=== PATIENT | female | born 1945 | race Caucasian/White ===

== ENCOUNTER 2022-03-12 16:10 | Outpatient (REF) | payer MEDICARE, SELFPAY ==
--- NOTE | ~2022-03-12 | CT_ITS ---
EXAMINATION: CT HEAD WITHOUT CONTRAST CLINICAL INFORMATION: Tension type headaches. COMPARISON: None TECHNIQUE: Contiguous axial imaging was performed from the skull base to vertex without intravenous administration of contrast. This CT examination was performed using dose optimization techniques as appropriate, variously including the following: *Automated exposure control *Adjustment of mA and/or kV according to patient size (this includes techniques or standardized protocols for targeted exams where dose is matched to indication/reason for exam; i.e. extremities or head) *Use of iterative reconstruction technique DLP: 7:30 mGy-cm FINDINGS: There is no acute intra-axial, extra-axial bleed, collection, masses or midline shift. There is no acute infarction evolution. No edema. The lateral ventricles are symmetrical in size and configuration and mildly prominent. Bone windows reveal no calvarial abnormality. Bilateral paranasal sinuses and mastoid air cells are well-aerated. There is no calvarial abnormality. The soft tissues are normal. CT/CT head/brain wo IV con IMPRESSION: No acute intracranial process.
== END 2022-03-12 16:11 | disposition home or self-care (01) ==
LOC: HO.CT 16:10
PROVIDERS: Visit Provider Psychiatry & Neurology Neurology
DX: G44.209 Tension-type headache, unspecified, not intractable (principal)
CPT/HCPCS: 70450

== ENCOUNTER 2023-06-03 13:08 | Outpatient (REF) | payer MEDICARE, SELFPAY ==
[2023-06-03 13:31] LABS: MANUAL DIFF FLAG NO
[2023-06-03 14:25] LABS: Basophils Absolute Auto 0.1 X10*3/uL (0.0-0.2); Basophils Percent Auto 1.1 % (0-2); Eosinophils Absolute Auto 0.3 X10*3/uL (0.0-0.4); Eosinophils Percent Auto 4.3 % (0-4); Hematocrit 35.2 % (37.0-47.0); Hemoglobin 11.8 g/dl (12.0-16.0); Imm Gran Abs Auto 0.03 X10*3/uL (0.00-0.03); Imm Gran Pct Auto 0.4 % (0.0-0.4); Lymphocytes Absolute Auto 1.9 X10*3/uL (1.2-4.9); Lymphocytes Percent Auto 24.6 % (20-40); Mean Corpuscular HGB Conc 33.5 g/dl (31.0-35.0); Mean Corpuscular Hemoglobin 31.6 pg (27.0-33.0); Mean Corpuscular Volume 94.4 fL (80.0-98.0); Mean Platelet Volume 9.7 fL (9.4-12.3); Monocytes Absolute Auto 0.7 X10*3/uL (0.1-1.2); Monocytes Percent Auto 9.3 % (2-11); Neutrophils Absolute Auto 4.6 x10*3/uL (2.0-8.3); Neutrophils Percent Auto 60.3 % (45-73); Platelet Count 295 X10*3/uL (160-400); Red Blood Count 3.73 X10*6/uL (4.20-5.50); White Blood Count 7.6 X10*3/uL (4.8-10.8)
[2023-06-03 14:52] LABS: Erythrocyte Sedimentation Rate 31 MM/HR (0-20)
== END 2023-06-03 13:09 | disposition home or self-care (01) ==
LOC: HO.LAB 13:08
PROVIDERS: Visit Provider Psychiatry & Neurology Neurology
DX: G44.209 Tension-type headache, unspecified, not intractable (principal); G62.9 Polyneuropathy, unspecified; G47.33 Obstructive sleep apnea (adult) (pediatric)
CPT/HCPCS: 36415; 85025; 85652

== ENCOUNTER 2023-06-22 14:19 | Emergency (ER) | payer OTHER, SELFPAY ==
[2023-06-22 14:28] VITALS: BP 112/50; BP 118/47; PULSE 61; PULSE 62; RESP 16; TEMP 36.6; O2SAT 95; BMI 34.5
--- NOTE | 2023-06-22 14:44 | ED_ITS ---
HPI - General Adult General Chief complaint: General Medical Stated complaint: back/leg pain per ems Time Seen by Provider: 06/22/23 14:25 Source: patient and EMS Mode of arrival: EMS Limitations: no limitations History of Present Illness HPI narrative: patient presents with diffuse pain mostly to her legs from neuropathy but also has just diffuse pain, no able to care for herself not eating or drinking. She had falls in February nothing recently Onset (ago): week(s) Related Data Previous Rx's Medication Instructions Recorded diclofenac sodium 1 % topical gel 2 g topical BID #100 grams 05/22/20 (Voltaren) hydroxychloroquine 200 mg tablet 200 mg PO BID #180 tabs 10/19/20 Allergies Allergy/AdvReac Type Severity Reaction Status Date / Time amoxicillin Allergy Unknown Unknown Verified 06/22/23 21:40 ciprofloxacin [Cipro] Allergy Unknown Unknown Verified 06/22/23 21:40 Sulfa (Sulfonamide Allergy Unknown Unknown Verified 06/22/23 21:40 Antibiotics) No Known Allergies Allergy Unverified 01/05/20 14:47 [No Known Allergies*] Review of Systems 2 Review of Systems: Yes all other systems are reviewed and are negative Neurologic: Denies Sensory deficit (Neuro) [facility] Social History Social History Alcohol intake: former Smoked in Last 30 Days: Yes Use of substances other than those prescribed or required for medical reasons: No Advance Directives: No Advance Directives Information Provided: No Physical Exam ED Vital Signs: Vital Signs - 24 hr 06/22/23 14:28 06/22/23 15:23 06/22/23 21:31 Temperature 97.9 F 97.5 F 97.8 F Pulse Rate 61 62 62 Respiratory Rate 16 16 16 Blood Pressure 118/47 L 134/68 121/38 L Pulse Oximetry 95 93 95 Oxygen Delivery Method Room Air Room Air Room Air BMI result Body Mass Index 34.5 Const Other: anxious complaining of pain out of proportion to physical findings Nutritional Appearance: obese Orientation/consciousness: oriented to person and patient oriented x3 Limitations: no limitations HENMT Head: Yes normal to inspection Ears: external ears normal General nose exam: Normal external nose present Mouth: Normal oral and palatal mucosa present and oropharynx normal Throat: Yes posterior oropharynx normal Eyes General: appearance normal, both eyes and all related structures Neck Neck: Yes normal visual inspection Chest Chest palpation & inspection: normal inspection of the chest Resp Auscultation: clear to auscultation bilaterally Cardio Jugular venous distension: no JVD Rate: regular rate Rhythm: regular rhythm Heart sounds: S1 normal heart sound present and S2 normal heart sound present GI Inspection: Yes normal to inspection Palpation (GI): Soft to palpation, nontender and No hepatosplenomegaly present Auscultation: normal bowel sounds Other: rectal heme negative light brown stool Skin General skin exam: no rashes or lesions noted Neuro General: oriented to person and patient oriented x3 Cranial nerves: Yes CN's II-XII intact bilaterally Motor exam (neuro): 5/5 motor strength present throughout Sensory Exam: No Sensory deficit (Neuro) Extrem General: Yes normal to inspection Psych Appearance: grossly normal Course Reevaluation(s) Reevaluation #1: physician observation started now: awaiting to make sure patient does not have a UTI, she needs PT to see her and see if her strength improves or she will need placement Time: 21:45 Reevaluation #2: patient with borderline hyponatremia and anemia. She has not been eating well or taking care of herself, her rectal exam was negative for blood so no evidence of GI bleed Time: 21:47 Medications Administered Discontinued Medications Generic Name Dose Route Start Last Admin Trade Name Stevenq PRN Reason Stop Dose Admin Acetaminophen 975 mg 06/22/23 18:03 06/22/23 18:19 Acetaminophen 325 Mg Tablet PO 06/22/23 18:04 975 mg ONCE ONE Administration Medical Decision Making Differential Diagnosis Differential Diagnoses: The differential diagnosis associated with the presentation includes (dehydration, hyponatremia, UTI, anemia, chronic pain, weakness) Admission/Observation Consideration of admission/observation: Escalation of care including admission/observation considered (upon arrival patient was considered for admission) Consult Healthcare Provider Management of the patient was discussed with: Restaurant Cashier (PT and case management) Lab Data MDM Lab Attestation statement: I reviewed the patient's lab results. (anemia and hyponatremia were noted) 06/22/23 15:01 06/22/23 15:01 Labs: Lab Results 06/22/23 Range/Units 15:01 WBC 5.2 (4.8-10.8) X10*3/uL RBC 3.17 L (4.20-5.50) X10*6/uL Hgb 11.0 L (12.0-16.0) g/dl Hct 29.9 L (37.0-47.0) % MCV 94.3 (80.0-98.0) fL MCH 34.7 H (27.0-33.0) pg MCHC 36.8 H (31.0-35.0) g/dl RDW 15.2 (11.0-16.0) % Plt Count 188 D (160-400) X10*3/uL MPV 9.1 L (9.4-12.3) fL Immature Gran % (Auto) 0.8 H (0.0-0.4) % Neut % (Auto) 63.8 (45-73) % Lymph % (Auto) 14.2 L (20-40) % Blaine % (Auto) 19.4 H (2-11) % Eos % (Auto) 1.0 (0-4) % Baso % (Auto) 0.8 (0-2) % Lymph # (Auto) 0.7 L (1.2-4.9) X10*3/uL Blaine # (Auto) 1.0 (0.1-1.2) X10*3/uL Eos # (Auto) 0.1 (0.0-0.4) X10*3/uL Baso # (Auto) 0.0 (0.0-0.2) X10*3/uL Abs Immat Gran (auto) 0.04 H (0.00-0.03) X10*3/uL Absolute Neuts (auto) 3.3 (2.0-8.3) x10*3/uL Absolute Nucleated RBC 0.000 (0.0-0.012) X10*3/uL Nucleated RBC % (auto) 0.0 (0.0-0.2) /100WBC Sodium 130 L (135-145) mmol/L Potassium 3.9 (3.3-5.1) mmol/L Chloride 97 (96-108) mmol/L Carbon Dioxide 25 (22-29) mmol/L Anion Gap 12 (12-20) BUN 14 (9-16) mg/dL Creatinine 0.78 (0.5-1.4) mg/dL Estim Creat Clear Calc 59.3 Estimated GFR > 60 Random Glucose 91 (60-115) mg/dL Calcium 8.7 (8.4-10.2) mg/dL Independent Interpretation I performed an independent interpretation of an: EKG (sinus 60, no st or twave changes) Independent Historian Clinical information obtained from an independent historian. History obtained from or confirmed by: EMS Prescription Management I considered prescription management with: Antibiotic (no evidence of infection) Chronic Conditions Patient?s care impacted by: Other (chronic pain) Social Determinants Patient?s care significantly limited by Social Determinants of Health including: Low income Discharge Plan Discharge Clinical Impression: Weakness, Neuropathy Patient Disposition: Still a Patient Prescriptions: No Action diclofenac sodium [Voltaren] 1 % gel 2 g topical BID Qty: 100 2RF Rx Instructions: apply 2g twice daily as needed to affected area hydroxychloroquine 200 mg tablet 200 mg PO BID Qty: 180 1RF
--- NOTE | 2023-06-22 14:46 | ECG_ITS ---
Test Reason : WEAKNESS Blood Pressure : / mmHG Vent. Rate : 060 BPM Atrial Rate : 060 BPM P-R Int : 214 ms QRS Dur : 078 ms QT Int : 446 ms P-R-T Axes : 078 001 021 degrees QTc Int : 446 ms Sinus rhythm with 1st degree A-V block Otherwise normal ECG No previous ECGs available Referred By: Erwin Bustos Electronically Signed By:Andrew Poon
[2023-06-22 15:04] LABS: MANUAL DIFF FLAG NO
[2023-06-22 15:06] LABS: Basophils Percent Auto 0.8 % (0-2); Eosinophils Absolute Auto 0.1 X10*3/uL (0.0-0.4); Hematocrit 29.9 % (37.0-47.0); Imm Gran Abs Auto 0.04 X10*3/uL (0.00-0.03); Imm Gran Pct Auto 0.8 % (0.0-0.4); Lymphocytes Absolute Auto 0.7 X10*3/uL (1.2-4.9); Lymphocytes Percent Auto 14.2 % (20-40); Mean Corpuscular HGB Conc 36.8 g/dl (31.0-35.0); Mean Corpuscular Hemoglobin 34.7 pg (27.0-33.0); Mean Corpuscular Volume 94.3 fL (80.0-98.0); Mean Platelet Volume 9.1 fL (9.4-12.3); Monocytes Percent Auto 19.4 % (2-11); Neutrophils Absolute Auto 3.3 x10*3/uL (2.0-8.3); Neutrophils Percent Auto 63.8 % (45-73); Platelet Count 188 X10*3/uL (160-400); Red Blood Count 3.17 X10*6/uL (4.20-5.50); Red Cell Distribution Width 15.2 % (11.0-16.0); White Blood Count 5.2 X10*3/uL (4.8-10.8)
[2023-06-22 15:23] VITALS: BP 134/68; PULSE 62; RESP 16; TEMP 36.4; O2SAT 93
[2023-06-22 15:31] LABS: Anion Gap 12 (12-20); Blood Urea Nitrogen 14 mg/dL (9-16); Calcium 8.7 mg/dL (8.4-10.2); Carbon Dioxide 25 mmol/L (22-29); Chloride 97 mmol/L (96-108); Creatinine Clr Calc Pharmacy 59.3; Estimated Glomerular Filt Rate > 60; Glucose Random 91 mg/dL (60-115); Potassium 3.9 mmol/L (3.3-5.1); Sodium 130 mmol/L (135-145)
--- NOTE | 2023-06-22 16:47 | MHC.EDTECH ---
Patient bed pad changed and repositioned
--- NOTE | 2023-06-22 16:47 | MHC.CM.ED ---
CM met with patient at request of Dr. Bustos. Pt is A&Ox3, but is rambling in speech and does not seem to remember that she fell 3 times over the weekend and that she will have a PT assessment. Pt asked CM 3 times about why she needs PT. Pt is complaining of r knee and leg pain and a headache. RN notified of headache. Pt lives alone. Has [employer] through [facility] that comes 2 hours/day on . Pt was active with [facility], but states they are no help to her. Pt has a cane, but she uses it very little. Her PCP is Gilbert QUIROS at [facility], but patient states she wants a new doctor. Pt has a daughter, but she has no contact with her. Pt states she was homeless about 5-6 years ago, but is now living in a studio apartment in [place]. HCP on file is her nephew, Rosales Lynn ([phone]). Pt states she has little contact with him. Pt states she is willing to go to therapy if she needs to. PT pending. Local referrals placed. CM will follow for safe discharge plan.
[2023-06-22] MEDS: Acetaminophen 325 MG TABLET 975 MG PO (18:19)
[2023-06-22 21:31] VITALS: BP 121/38; PULSE 62; RESP 16; TEMP 36.6; O2SAT 95
[2023-06-23 00:56] LABS: Appearance Urine Clear; Color Urine Yellow; Glucose Urine UA Negative (Negative); Leukocyte Esterase Urine Small (1+) (Negative); Nitrite Urine Negative (Negative); PH 5.5 (5.0-9.0); UMIC TRIGGER UACC YES; Urine Blood Negative (Negative); Urine Ketones Trace mg/dL (Negative); Urine Protein Trace mg/dL (Neg-Trace)
[2023-06-23 01:04] LABS: Bacteria Urine None Seen (None Seen); Hyaline Casts Urine 0-2 /LPF (0-2); RBC Urine 0-2 /HPF (0-2); Squamous Epithelial Cell Urine 0-2 /HPF (0-2); UACC Culture Trigger YES; WBC Urine 0-5 /HPF (0-5)
[2023-06-23 01:31] VITALS: BP 145/59; PULSE 81; RESP 18; TEMP 37.6; O2SAT 96
--- NOTE | 2023-06-23 01:47 | MHC.EDTECH ---
This tech took over care of patient at 0100AM ,Hourly rounds and vitals completed. Patient was a minimal assist to commode,patient urinated a large amount,nuha-care giving. Belonoing list completed copy placed in chart. Call heart within reach
--- NOTE | 2023-06-23 03:46 | MHC.EDTECH ---
Hourly rounds completed,patient is resting comfortably at this time,call heart in reach.
--- NOTE | 2023-06-23 05:12 | MHC.EDTECH ---
Patient got up to commode without difficulty,urinated a moderate amount,nuha-care giving.
--- NOTE | 2023-06-23 06:15 | MHC.EDTECH ---
Hourly rounds completed,patient is sleeping at this time ,call heart in reach
--- NOTE | 2023-06-23 07:40 | PC.NURSE ---
Called pharmacy requesting med rec for patient.
[2023-06-23 07:50] VITALS: BP 132/70; PULSE 96; RESP 16; TEMP 37.2; O2SAT 97
--- NOTE | 2023-06-23 10:42 | PC.NURSE ---
Patient alert and oriented, skin PWD, respirations even and unlabored, lung sounds clear, slightly diminished in lower bases, patient reports 9/10 pain in bilateral feet and legs, call heart within reach, Angelica from case management at bedside at this time speaking with patient regarding [facility].
--- NOTE | 2023-06-23 10:42 | MHC.CM.ED ---
Addendum entered by Rupal Balbuena 06/23/23 14:06: Insurance auth has been obtained. Patient can leave at 430pm. Diana SPRINGER booked. Med [facility] with chart. Patient, Opal RN and Cindy QUIROS aware. Original Note: Patient remains in ER. Physical therapy eval completed. The following facilities are able to offer a bed: [facility], [facility], [facility], [facility], and [facility] are able to offer a bed. These options were discussed with patient. [facility] is 1st choice and has been asked to go for ins auth. Continue to monitor for d/c needs.
[2023-06-23 10:47] LABS: COVID-19 Test Negative (Negative); IDNOW Serial# 08D9AD1C
[2023-06-23] MEDS: Acetaminophen 325 MG TABLET 650 MG PO (11:10)
--- NOTE | 2023-06-23 12:48 | PHA.MEDREC ---
Pharmacy Consult ? Medication Reconciliation Pharmacy has completed the medication reconciliation. Patient confused, agreeable to medications from claim history. Did say she no longer takes amitriptyline because it made her sick, and also no longer takes Cymbalta or the lactulose solution.
[2023-06-23 15:09] VITALS: BP 108/51; PULSE 92; RESP 16; TEMP 36.4; O2SAT 97
[2023-06-23 16:00] VITALS: BP 110/52; PULSE 88; RESP 14; O2SAT 96
== END 2023-06-23 17:48 | disposition skilled nursing facility (03) ==
PROVIDERS: Physician Assistant Medical; Emergency Provider Emergency Medicine
DX: R53.1 Weakness (principal); G62.9 Polyneuropathy, unspecified; E87.1 Hypo-osmolality and hyponatremia; D64.9 Anemia, unspecified; Z11.52 Encounter for screening for COVID-19
CPT/HCPCS: 36415; 80048; 81001; 85025; 87086; 87635; 93005; 97162; 99284; 99285

== ENCOUNTER → 2023-06-22 14:46 | Outpatient (BNV) | payer OTHER, SELFPAY | PROVIDERS: Emergency Provider Emergency Medicine; Visit Provider Internal Medicine Cardiovascular Disease | DX: I44.0 Atrioventricular block, first degree (principal) | CPT/HCPCS: 93010 ==

== ENCOUNTER 2023-08-28 13:20 | Outpatient (REF) | payer OTHER, SELFPAY ==
--- NOTE | ~2023-08-28 | CT_ITS ---
EXAMINATION: CT HEAD WITHOUT CONTRAST CLINICAL INFORMATION: 77-year-old with tension headache and syncope. COMPARISON: None available. TECHNIQUE: Contiguous axial imaging was performed from the skull base to vertex without intravenous administration of contrast. This CT examination was performed using dose optimization techniques as appropriate, variously including the following: *Automated exposure control *Adjustment of mA and/or kV according to patient size (this includes techniques or standardized protocols for targeted exams where dose is matched to indication/reason for exam; i.e. extremities or head) *Use of iterative reconstruction technique DLP: 587 mGy-cm FINDINGS: BRAIN VOLUME: Mild generalized diffuse supratentorial parenchymal volume loss within the limitations of qualitative assessment. STRUCTURAL: No malformations. BRAIN AND MENINGES: Subtle small patchy zones of white matter hypodensity are seen in the subcortical white matter of both frontal lobes which are nonspecific but could reflect minimal chronic ischemic microangiopathy. Farmer-white matter interface is preserved. There is no acute territorial infarct. Ganglionic structures appear grossly intact. No intracranial hemorrhage, extra-axial fluid collection, space-occupying process or mass effect. Bilateral carotid siphon mural calcifications. VENTRICLES AND SUBARACHNOID SPACES: The ventricular system and subarachnoid spaces are within normal range; there is no hydrocephalus. ORBITAL STRUCTURES: Grossly unremarkable within the limitations of the study. OSSEOUS STRUCTURES, SINUSES/MASTOIDS, EXTRACRANIAL SOFT TISSUES: The calvarium appears intact. The visualized mastoids and middle ear cavities are unopacified. Probable retention cyst formation in the right maxillary sinus and possibly in the ethmoid complex on the right with some mucosal thickening in the ethmoid complex. CT/CT head/brain wo IV con IMPRESSION: 1. No acute intracranial process. No acute territorial infarct, intracranial hemorrhage, extra-axial fluid collection, space-occupying process, or mass effect. 2. Mild generalized diffuse supratentorial parenchymal volume loss and minimal chronic ischemic microangiopathy in the subcortical white matter of both frontal lobes.
== END 2023-08-28 13:21 | disposition home or self-care (01) ==
LOC: HO.CT 13:20
PROVIDERS: Visit Provider Psychiatry & Neurology Neurology
DX: R55 Syncope and collapse (principal); G44.209 Tension-type headache, unspecified, not intractable
CPT/HCPCS: 70450

== ENCOUNTER 2024-12-06 11:25 | Outpatient (AMB) | payer OTHER, SELFPAY ==
--- NOTE | 2024-12-06 11:59 | A.OFFVIS_ITS ---
Intake Visit Reasons: 4 month syncope amnesia Allergies amoxicillin Allergy (Unknown, Verified 06/22/23 21:40) Unknown ciprofloxacin (Cipro) Allergy (Unknown, Verified 06/22/23 21:40) Unknown Sulfa (Sulfonamide Antibiotics) Allergy (Unknown, Verified 06/22/23 21:40) Unknown No Known Allergies (No Known Allergies*) Allergy (Unverified 01/05/20 14:47) HPI Comments Details: No further syncope of amnesia. She has a possible Syncopal episode in Feb 2024? was admitted to [facility]. Has amnesia for 4-5 days. No medical records. Now getting lot of pressure in head. Scalp sensitivity. Using a nasal pillow for JENNIFER with CPAP at 15cm.. Feels pressure in base of skull and eye balls. Feels exhausted.? Getting pains under breast and chest pains that can last 2 hrs.?? She has multiple medical problems and multiple complaints who has been on a lot of medications including large doses of narcotics chronically for a diagnosis of fibromyalgia and had been seeing Dr. Shelby at [facility]. She says she gets a lot of headaches on a daily basis some days feels dizzy and out of it. Legs hurt at night and go numb and her sleep is disrupted. Frequent headaches and nape of neck swells. [facility] Medical History (Updated 12/06/24 @ 12:18 by Marshall Lombardi MD) Sensory neuropathy JENNIFER on CPAP Narcotic dependence Depression with anxiety Fibromyalgia Tension headache Social History Alcohol intake: former Review of Systems Const Details: ?General/Constitutional:? Change in appetitedenies.? Chillsdenies.? Fatigueadmits.? Feverdenies.? Weight gaindenies.? Weight lossdenies. ???Sleep:? Difficulty getting to sleepdenies.? Difficulty maintaining sleepdenies?.? Urge to move legsadmits.? Teeth grindingdenies.? Shouting or Kicking during sleep denies.? Abnormal behavior during sleepdenies.? Excessive sleepdenies.? Snoring admits.? Daytime sleepinessdenies. ???Respiratory:? Shortness of breathadmits.? Chest painadmits.? Coughadmits. ???Cardiovascular:? Chest pain at restdenies.? Chest pain with exertiondenies.? Claudicationdenies .? Dizzinessdenies.? Fluid accumulation in the legsdenies.? Irregular heartbeat denies.? Palpitationsadmits. ???Gastrointestinal:? Abdominal paindenies.? Constipationadmits.? Diarrheadenies.? Difficulty swallowingdenies.? Heartburndenies.? Nauseaadmits.? Rectal bleedingdenies. ???Genitourinary:? Frequent urinationadmits.? Urgencyadmits.? Incontinenceadmits.? Erectile Dysfunctiondenies. ???Musculoskeletal:? Neck paindenies.? Back painadmits.? Muscle achesadmits.? Painful jointsadmits.? Sciaticadenies.? Weaknessdenies. ???Neurologic:? Difficulty swallowingdenies.? Balance difficultyadmits.? Coordinationnormal.? Difficulty speakingdenies.? Dizzinessadmits.? Faintingdenies.? Gait abnormality denies.? Headacheadmits.? Loss of strengthdenies.? Loss of use of extremity denies.? Low back paindenies.? Memory lossadmits.? Seizuresdenies.? Ticsdenies.? Tingling/Numbnessadmits.? Transient loss of visiondenies.? Tremordenies. ???Psychiatric:? Anxietyadmits.? Auditory/visual hallucinationsdenies.? Delusionsdenies.? Depressed moodadmits.? Stressorsadmits.? Substance abusedenies.? Suicidal thoughtsdenies. Physical Exam Neuro Other: Abnormal neurological findings:??none.?Mental Status:??alert and oriented X 3,?Normal attention, orientation, memory and affect.?Cranial Nerves:??Pupils are equal, round and reactive to light. Fundoscopy shows normal disc bilaterally. External occular muscles are intact. Visual willard are full, no ptosis. Face is symmetrical, no facial weakness or droop. Facial sensations are normal. Tongue protrudes in midline. Palate elevates symmetrically. Shoulder shrugging is normal..?Motor Examination:??Normal muscle tone, bulk and strength,?No atrophy or fasciculations,?No drift of the extended upper extremities,?Deep tendon reflexes are 2+?,?Plantars are flexor?.?Straight Leg Raising:??90 degrees.?Sensory Exam:??Normal light touch, temperature, pinprick, vibration and joint-position sensations?,?Rhomberg sign is absent.?Coordination:??no ataxia,?no titubation,?[id number], [id number]-[id number] test and rapid alternating movements were normal.?Gait Exam:??Within normal limits.?Cerebellar Signs:??[id number]-[id number] and ikdu-be-njty is normal,?no dysdiadochokinesia?.?E xtrapyramidal System:??No tremor, rigidity with normal facial expressions,?No bradykinesia, no bradyphrenia. Normal arm swing and posture. No propulsion or retropulsion.?Speech:??Normal,?no dysphasia or dysarthria..? Mini Mental Status Exam: Level of Consciousness:??Alert.?Orientation:??Knows correct year, month, date, day and season,?Knows correct city, county and state. Knows correct location and floor.?Registration:??Able to register 3 objects.?Attention:??Serial 7's performed accurately.?Recall:??Able to recall 3 out of 3 objects.?Language:??Normal spontaneous speech, fluency, repetition,naming, comprehension, reading and writing.?Total Score:??30/30.? Results Reviewed Results Reviewed: 10/03/24 Waking EEG is within normal limits Assessment & Plan Assessment & Plan (1) Syncope: Code(s): R55 - Syncope and collapse Category: Medical (2) Tension headache: Code(s): G44.209 - Tension-type headache, unspecified, not intractable Category: Medical (3) Sensory neuropathy: Comment: 11/11/23 NCV/EMG ALL Early Carpal tunnel syndrome on the left in the upper extremities. 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 Normal EMG in the right L4-S1 innervated muscles. Code(s): G62.9 - Polyneuropathy, unspecified Category: Medical Plan [facility]btain records from [facility].Continue current meds . Use CPAP at least 4-6 hrs Coding Level of Care Code Est Pt Level 4 (54840) Diagnoses Syncope R55 Tension headache G44.209 Sensory neuropathy G62.9
--- OUTSIDE RECORDS SUMMARY | 2024-12-06 12:59 | XMS_ITS ---
Author Organization [facility] Support Name Relationship Address Phone Aniyah Mccartyjorie Personal Relationship [address] [facility] [address] [place], [place] [id number] Rosales [place] Emergency Contact [address] [place] [address] Unavailable Care Team Providers Care Mascara Molder Name Role Phone Wanda Lima Unavailable Unavailable Allergies and adverse reactions Code CodeSystem Substance Reaction Severity StartDate Concern Status 682284076 SNOMED CT Sulfa Antibiotics Unknown 06/23/2023 active 2551 RXNORM Ciprofloxacin Unknown 06/23/2023 active 723 RXNORM Amoxicillin Unknown 06/23/2023 active Care Team Name Role Address Phone Organization Dates Wanda Lima PCP [address] [place] [address], [place], [address], [place] States (Office): : [facility] 06/23/2023 - 06/30/2023 Immunizations Immunization Status Vaccine Details Vaccine Code CodeSystem Clarence e Notes Influenza, high dose seasonal cancelled Influenza, high-dose, split virus, trivalent, injectable, preservative free 135 CVX created date: 06/29/2023 consent date: 06/29/2023 Medications Section Medication Name Status Code CodeSystem Dose Route Frequency Admin Type Sig Text Start Date End Date Pantoprazole Sodium Oral Tablet Delayed Release 20 MG active 215129 RXNORM 1 tablet Oral one time a day Routine Give 1 tablet by mouth one time a day for gerd 2023 - clonazePAM Oral Tablet 1 MG active 649437 RXNORM 1 tablet Oral as needed PRN Give 1 tablet by mouth every 8 hours as needed for anxiet y 2023 - Albuterol Sulfate HFA Inhalation Aerosol Solution 108 (90 Base) MCG/ACT active 169623 RXNORM 2 puff Inhalat ion as needed PRN 2 puff inhale orally every 4 hours as needed for wheezi ng 2023 - Vitamin B Complex Oral Tablet active 1 tablet Oral one time a day Routine Give 1 tablet by mouth one time a day for supple ment 2023 - hydrOXYzine HCl Oral Tablet 10 MG active 357369 RXNORM 1 tablet Oral one time a day Routine Give 1 tablet by mouth one time a day for anxiet y 2023 - Baclofen Oral Tablet 10 MG active 967982 RXNORM 1 tablet Oral at bedtime Routine Give 1 tablet by mouth at bedtim e for lupus 2023 - Trelegy Ellipta Inhalation Aerosol Powder Breath Activated 100-62.5-25 MCG/ACT active 0751950 RXNORM 1 inhala tion Inhalat ion one time a day Routine 1 inhala tion inhale orally one time a day for copd 2023 - oxyCODONE HCl Oral Tablet 5 MG active 3506517 RXNORM 1 tablet Oral as needed PRN Give 1 tablet by mouth every 6 hours as needed for pain 2023 - busPIRone HCl Oral Tablet 5 MG active 932032 RXNORM 1 tablet Oral every morning and at bedtime Routine Give 1 tablet by mouth every mornin g and at bedtim e for anxiet y 2023 - Fleet Enema Enema 7-19 GM/118ML active 847782 RXNORM 1 dose Rectal as needed PRN Insert 1 dose rectal ly as needed for Consti pation (Step 3) as needed if no bowel moveme nt for 8 hours after bisaco dyl suppos itory. 2023 - Milk of Magnesia Suspension 400 MG/5ML active 091160 RXNORM 30 ml Oral as needed PRN Give 30 ml by mouth as needed for Consti pation (Step 1) As needed if no bowel moveme nt for three days. (Do not use for Hemodi alysis patien ts). 2023 - Acetaminophen Tablet 325 MG active 025517 RXNORM 2 tablet Oral as needed PRN Give 2 tablet by mouth every 6 hours as needed for Pain Pain Total dosage for acetam inophe n and medica tions that contai n acetam inophe n should not exceed 3 grams / 24 hours. AND Give 2 tablet by mouth every 6 hours as needed for Fever greate r than 100.0F Total dosage for acetam inophe n and medica tions that contai n acetam inophe n should not exceed 3 grams / 24 hours. 2023 - 846672 RXNORM 2 tablet Oral as needed PRN Give 2 tablet by mouth every 6 hours as needed for Pain Pain Total dosage for acetam inophe n and medica tions that contai n acetam inophe n should not exceed 3 grams / 24 hours. AND Give 2 tablet by mouth every 6 hours as needed for Fever greate r than 100.0F Total dosage for acetam inophe n and medica tions that contai n acetam inophe n should not exceed 3 grams / 24 hours. 2023 - Aspirin Oral Tablet Chewable 81 MG active 320754 RXNORM 1 tablet Oral one time a day Routine Give 1 tablet by mouth one time a day for CAD 2023 - Furosemide Oral Tablet 20 MG active 947947 RXNORM 1 tablet Oral as needed PRN Give 1 tablet by mouth every 24 hours as needed for edema 2023 - Bisacodyl Suppository 10 MG active 147476 RXNORM 1 suppos itory Rectal as needed PRN Insert 1 suppos itory rectal ly as needed for If no bowel moveme nt for 8 hours after Milk of Magnes ia 2023 - Atorvastatin Calcium Oral Tablet 20 MG active 723683 RXNORM 1 tablet Oral at bedtime Routine Give 1 tablet by mouth at bedtim e for HLD 2023 - Vitamin E Oral Capsule 268 MG (400 UNIT) active 561287 RXNORM 1 capsul e Oral one time a day Routine Give 1 capsul e by mouth one time a day for supple ment 2023 - Zofran Oral Tablet 4 MG active 366554 RXNORM 1 tablet Oral as needed PRN Give 1 tablet by mouth every 8 hours as needed for n/v 2023 - Nitroglycerin Sublingual Tablet Sublingual 0.3 MG active 949371 RXNORM 1 tablet Subling ual as needed PRN Give 1 tablet sublin gually every 24 hours as needed for angina 1 tab sl x1 prn angina 2023 - Morphine Sulfate ER Oral Tablet Extended Release 15 MG active 695563 RXNORM 1 tablet Oral every morning and at bedtime Routine Give 1 tablet by mouth every mornin g and at bedtim e for pain 2023 - Mental Status Section Date Assessment Total Score Description 06/30/2023 BIMS 15 cognitively int act CAM 0 No delirium ind icated PHQ-9 05 mild depression 06/26/2023 BIMS 14 cognitively int act CAM 0 No delirium ind icated PHQ-9 01 minimal depress ion Problems Problem # Description Date of onset Resolved Date Code CodeSystem Concern Status 1 ANEMIA, UNSPECIFIED 06/23/[address] active 2 ANXIETY DISORDER, UNSPECIFIED 06/23/[address] active 3 CHRONIC OBSTRUCTIVE PULMONARY DISEASE, UNSPECIFIED 06/23/[address] active 4 DIFFICULTY IN WALKING, NOT ELSEWHERE CLASSIFIED 06/23/[address] active 5 HEREDITARY AND IDIOPATHIC NEUROPATHY, UNSPECIFIED 06/23/[address] active 6 HYPO-OSMOLALITY AND HYPONATREMIA 06/23/[address] active 7 PAIN, UNSPECIFIED 06/23/[address] active 8 UNSPECIFIED LACK OF COORDINATION 06/23/[address] active 9 UNSTEADINESS ON FEET 06/23/[address] active 10 WEAKNESS 06/23/[address] active Reason for Referral No Reasons for Referral Entered Social History Social History Observation Description Start Date End Date Code Code System Current Smoking Status Tobacco smoking consumption unknown 985217435 SNOMED CT Sex Assigned At Female 1945 98191-4 [facility] Gender Identity Vital Signs Code Code System Vitals Name Values and Units Timing Information 73340-4 LOINC Pain Level Value=0.0 06/30/2023 9279-1 LOINC Respiratory Rate Value=18.0 Units=/m in 06/26/2023 8462-4 LOINC Blood Pressure-Diastolic Value=60 Un its=mmHg 06/26/2023 8480-6 LOINC Blood Pressure-Systolic Iiqzy=593 Un its=mmHg 06/26/2023 8310-5 LOINC Body Temperature Value=97.8 Units= F 06/26/2023 8867-4 [facility] Heart rate Value=60.0 Units=/min 11/2023 70771-1 [facility] O2 % BldC Oximetry Value=93.0 Units= % 06/26/2023 33595-0 [facility] Weight Ipxma=194.0 Units=Lbs 09/2023 8302-2 [facility] Height Value=62.0 Units=Inches 06/23/2023
--- OUTSIDE RECORDS SUMMARY | 2024-12-06 12:59 | XMS_ITS | Clinical Summary ---
Author Organization [facility] Address [address] [place] [address] Care Team Providers Care Power Ballast Machine Operator Name Role Phone Gilbert Julien Primary Care Provider [phone] Allergies Active Allergy Reactions Criticality Noted Date Comments Amoxicillin-Pot Clavulanate Apnea High 06/08/19 21 Ciprofloxacin Hcl Anaphylaxis High 06/08/2020 Desipramine Anaphylaxis High 06/08/2020 Flu Vac 2011 (18-64yrs)(Pf) Unknown 06/08/19 21 Sulfamethoxazole-Trimethoprim Anaphylaxis High 06/08 Tetanus Immune Globulin Anaphylaxis High 06/08/2020 Medications albuterol (PROAIR HFA,VENTOLIN HFA) 90 mcg inhaler Inhale 1-2 puffs by mouth every 6 hours. Active ipratropium-alb uteroL (DUO-NEB) 0.5-2.5 mg/3 mL nebulizer solution Active nitroglycerin (NITROSTAT) 0.[address] 0.4 mg under the tongue every 5 minutes as needed. Active ondansetron (ZOFRAN) 4 mg tablet Take 4 mg by mouth every 8 hours as needed for nausea or vomiting. Active loratadine (CLARITIN) 10 mg tablet Take 10 mg by mouth daily. Active hyoscyamine (ANASPAZ,LEVSIN ) 0.125 mg tablet Take 0.125 mg by mouth every 4 hours as needed. Active furosemide (LASIX) 20 mg tablet Take 20 mg by mouth once a day. Active DULoxetine DR (CYMBALTA) 60 mg capsule Take 60 mg by mouth once a day. Active hydrOXYzine HCL (ATARAX) 10 mg tablet Take 10 mg by mouth once a day. Active naloxone HCl (NARCAN) 4 mg/actuation nasal spray Instill the contents of 1 unit intranasally for suspected opioid overdose. Repeat after 3 minutes if no or minimal response. 1 each 4 Active Trelegy Ellipta 100-62.5-25 mcg blister with device Inhale 1 puff by mouth once a day. 4 Active aspirin 81 mg EC tablet Take 1 tablet by mouth once a day. Active hydroxychloroqu ine (PLAQUENIL) 200 mg tabletIndicatio ns:Polyarthralg ia Take 2 tablets (400 mg total) by mouth once a day. 180 tablet 3 4 Active celecoxib (CeleBREX) 100 mg capsuleIndicati ons:Polyarthral briana Take 1 capsule (100 mg total) by mouth 2 times a day as needed for pain. Take with food 60 capsule 2 5 Active pregabalin (LYRICA) 75 mg capsuleIndicati ons:Fibromyalgi a Take 1 capsule (75 mg total) by mouth nightly. 30 capsule 2 5 Active baclofen (LIORESAL) 10 mg tablet Take 1 tablet (10 mg total) by mouth 2 times a day as needed for muscle spasms. 60 tablet 2 5 Active clonazePAM (KlonoPIN) 1 mg tablet Take 1 tablet (1 mg total) by mouth 3 times a day as needed for anxiety. 90 tablet 5 Active morphine ER (MS CONTIN) 15 mg tablet Take 1 tablet (15 mg total) by mouth 2 times a day. 60 tablet 5 12/08/19 25 Active Active Problems Problem Noted Date Diagnosed Date Age-related osteoporosis wit hout current pathological fracture 08/09/2024 Assessment & Plan (08/09/2024 11:37 AM EDT): On DXA from yesterday -we will come back to if not addressed by PCP in interim Long-term use of high-risk medication 01/27/2024 Assessment & Plan (08/09/2024 11:36 AM EDT): Hydroxychloroquine and systemic NSAID and morphine -follow up with ophtho Assessment & Plan (01/27/2024 12:02 PM EDT): Hydroxychloroquine and systemic NSAID and morphine -labs today -follow up with ophtho -urine tox --signed controlled substance agreement Fibromyalgia 06/15/2023 Assessment & Plan (08/09/2024 11:37 AM EDT): Here with join pain/bone pain. Overall sense is that there is a combination of issues including significant mental health diagnoses for which does not have a provider at this time, untreated JENNIFER, osteoarthritis, peripheral neuropathy and all as a result centralized pain and fibromyalgia. There is a reported history of lupus but I do not see evidence of inflammatory arthritis at this time. Positive SEFERINO with low pos RIGGER CHIEF. -continue hydroxychloroquine 200mg BID -continue duloxetine 60mg every other day -continue oxycontin in lieu of available morphine ER --I have reviewed the controlled substance dispensing history for Xiomy Mccarty in the [place] Prescription Monitoring Program before prescribing a controlled substance. -follow up neuro Assessment & Plan (01/27/2024 12:02 PM EDT): Here with join pain/bone pain. Overall sense is that there is a combination of issues including significant mental health diagnoses for which does not have a provider at this time, untreated JENNIFER, osteoarthritis, peripheral neuropathy and all as a result centralized pain and fibromyalgia. There is a reported history of lupus but I do not see evidence of inflammatory arthritis at this time. Positive SEFERINO with low pos RIGGER CHIEF. -continue hydroxychloroquine 200mg BID -continue duloxetine 60mg every other day -continue morphine ER -we can use ibuprofen in lieu of oxycodone as long as we monitor lab testing -follow up neuro Assessment & Plan (10/28/2023 10:25 AM EDT): Here with join pain/bone pain. Overall sense is that there is a combination of issues including significant mental health diagnoses for which does not have a provider at this time, untreated JENNIFER, osteoarthritis, peripheral neuropathy and all as a result centralized pain and fibromyalgia. There is a reported history of lupus but I do not see evidence of inflammatory arthritis at this time. Positive SEFERINO with low pos RIGGER CHIEF. -continue hydroxychloroquine 200mg BID -continue duloxetine as per neuro --await EMG/NCS --asked to call when she knows the date of this -morphine ER refilled --I have reviewed the controlled substance dispensing history for Xiomy Mccarty in the [facility] Prescription Monitoring Program before prescribing a controlled substance. Assessment & Plan (07/24/2023 11:52 AM EDT): Here with join pain/bone pain. Overall sense is that there is a combination of issues including significant mental health diagnoses for which does not have a provider at this time, untreated JENNIFER, osteoarthritis and all as a result centralized pain and fibromyalgia. There is a reported history of lupus but I do not see evidence of inflammatory arthritis at this time. Positive SEFERINO with low pos RIGGER CHIEF. -has been improvement in her symptoms from last visit -given reports that does think there was joint benefit in terms of hydroxychloroquine so we will restart at this point as next step Assessment & Plan (07/10/2023 10:59 AM EDT): Here with join pain/bone pain. Overall sense is that there is a combination of issues including significant mental health diagnoses for which does not have a provider at this time, untreated JENNIFER, osteoarthritis and all as a result centralized pain and fibromyalgia. There is a reported history of lupus but I do not see evidence of inflammatory arthritis at this time. Positive SEFERINO with low pos RIGGER CHIEF. -biggest issue today revolves around pain control and fact that she has been on chronic opiate therapy for 20+ years and right now has been out of treatment for a number of days -I am happy to take over script for morphine ER 15mg BID while she finds local arrangements --and also clonazepam similarly -hopefully this will then help us to address other issues over time -I have reviewed the controlled substance dispensing history for Xiomy Mccarty in the [place] Prescription Monitoring Program before prescribing a controlled substance. Assessment & Plan (06/15/2023 1:52 PM EST): Here with join pain/bone pain. Overall sense is that there is a combination of issues including significant mental health diagnoses for which does not have a provider at this time, untreated JENNIFER, osteoarthritis and all as a result centralized pain and fibromyalgia. There is a reported history of lupus but I do not see evidence of inflammatory arthritis at this time. -discussed we will take today as somewhat of a new start --labs --x-rays ---depending on transport is unsure if will be able to complete today or not ---if not, will go to have done at [facility] -needs to find new mental health provider she feels she can work with Other sleep apnea 06/15/2023 Assessment & Plan (08/09/2024 10:33 AM EDT): previously have discussed how untreated sleep apnea contributes to increased pain perception - now is using CPAP -asked to follow up with sleep center at [facility] re: any titration needed Assessment & Plan (06/15/2023 1:50 PM EST): We have discussed how untreated sleep apnea contributes to increased pain perception Encounters Date Type Department Care Team Description 11/02/2024 Refill [facility] [address] [place] [id number] Clinical Education Manager: Arnaud Ahn MD 10/28/2024 [facility] [address] [place] [phone] Clinical Education Manager: Arnaud Ahn MD 10/05/2024 Refill [facility] [address] [place] [phone] Clinical Education Manager: Arnaud Ahn MD 10/01/2024 Refill [facility] [address] [place] [phone] Clinical Education Manager: Arnaud Ahn MD from Last 3 Months Immunizations Immunization Administration Dates Next Due Influenza, High Dose Seasonal, Preservative Free 02/01/2016 Influenza, Trivalent, MDV, Injectable 12/27/2010 ,01/07/2010 Novel [id number], Preservative-Free, Inje ctable 04/18/2009 Pneumococcal Conjugate Vaccine, 13 Valent 2014 Pneumococcal Polysaccharide Vaccine, 23 Valent 0 01/16/2014,12/22/2008 Tetanus and Diphtheria Toxoi ds, Adsorbed, Preservative Free (2 Lf of Tetanus Toxoid and 2 Lf of Diphtheria Toxoid) 03/09/2019,10/05/2006 Tuberculin Skin Test; Purifi ed Protein Derivative Solution, Intradermal 06/06/2015 Social History Tobacco Use Types Packs/Day Years Used Date Smoking Tobacco: Some Days Cigarettes Passive Smoke Exposure: Past Smokeless Tobacco: Never Alcohol Use Standard Drinks/Week Comments Not Currently 0 (1 standard drink = 0.6 oz pur e alcohol) Comments Unknown Sex and Gender Information Value Date Recorded Sex Assigned at Female 06/27/2024 12:57 PM EDT Legal Sex Female 2:58 PM EDT Gender Identity Not on file Sexual Orientation Not on file Last Filed Vital Signs Vital Sign Reading Time Taken Comments Blood Pressure 135/78 08/09/2024 10:05 AM EDT Pulse 62 08/09/2024 10:05 AM EDT Temperature 37 C (98.6 F) 08/09/2024 10:05 AM EDT Respiratory Rate - - Oxygen Saturation - - Inhaled Oxygen Concentration - - Weight 86 kg (189 lb 9.6 oz) 08/09/2024 10:05 AM EDT Height - - Body Mass Index - - Plan of Treatment Upcoming Encounters Date Type Department Care Team (Late st Contact Info) Description 02/21/2025 10:20 AM EST Follow-Up [facility] [address] [place] [address] Clinical Education Manager: Arnaud Ahn MD [address] [place] [address] Health Maintenance Due Date Last Done Comments Zoster Vaccines (1 of 2) 12/30/1993 RSV Vaccine (60+ years old and patients) (1 - 1-dose 75+ series) 12/30/2018 DTaP,Tdap,and Td Vaccines (1 - Tdap) 03/10/2019 03/09/2019, 10/05/2006 COVID-19 Vaccine ( - 2023-25 season) 2023 Alcohol/Substance Use Screening 04/20/2024 Depression Screening and Follow-Up 04/20/2024 Health Care Proxy Review 04/20/2024 Social Drivers of Health Annual Screening 04/20/2024 Influenza Vaccine (#1) 2024 6, 12/27/2010, 01/07/2010, Additional history exists Controlled Substance Agreement 01/26/2025 01/27/2024 CT Lung Cancer Screening (Baseline) 05/25/2025 05/25/2024 Pneumococcal Vaccine: 50+ Years Completed 11/20/2014, 01/16/2014, 12/22/2008 Osteoporosis Screening Completed 5, 09/09/2021, 08/14/2020 Hepatitis B Vaccines Aged Out No long er eligible based on patient's age to complete this topic Procedures * Due to [place] [email or web address] law, this organization might not be sharing negative HIV tests. Procedure Name Priority Date/Time Associated Diagnosis Comments HM DEXA SCAN 09/09/2021 from Last 3 Months or Most Recently Relevant to Health Maintenance Results * Due to [place] [email or web address] law, this organization might not be sharing negative HIV tests. * HM DEXA SCAN (09/09/2021) Anatomical Region Laterality Modality Other 09/09/2021 us Onbase Scan [facility] MAINTENANCE Final Resu lt from Last 3 Months or Most Recently Relevant to Health Maintenance Insurance [address] [place] [address] [facility] Care Teams Power Ballast Machine Operator Relationship Specialty Start Date End Date Gilbert Julien PCP - General Internal Medicine 06/15/23
--- OUTSIDE RECORDS SUMMARY | 2024-12-06 12:59 | XMS_ITS | Clinical Summary ---
Author Organization [address] Address [address] [place] [phone] Phone Care Team Providers Care Stagecraft Teacher Name Role Phone Physician, No Pcp Primary Care Provider Unavaila ble Allergies Active Allergy Reactions Criticality Noted Date Comments Amoxicillin Rash Low 11/14/2005 Ciprofloxacin Unknown 01/05/2020 Ciprofloxacin-Hydrocortison e 05/14/2012 unknwn intolerance pharmacist states pt previously stated she did not tolerate Desipramine Unknown 04/10/2005 Flu Virus Vaccine Tv 2015- (18 Yr And Up),Recomb 12/22/2018 Sulfamethoxazole-Trimethopr im 05/14/2012 Tetanus Toxoid 03/28/2019 Medications albuterol 2.5 mg /3 mL (0.083 %) nebulizer solution Take 1 Vial by nebulization every 4 hours as needed for Wheezing or Shortness of Breath for up to 30 days. 01/23/20 22 Active aspirin 81 mg EC tablet 1 TABLET DAILY Activ e baclofen (LIORESAL) 10 mg tablet Take 1 Tablet by mouth at bedtime. 06/21/19 23 Active betamethasone, augmented, (DIPROLENE-AF) 0.05 % cream Apply to affected areas up to twice a day sparingly. Do not use this medication for more than 2 weeks straight. 09/10/19 22 Active busPIRone (BUSPAR) 5 mg tablet Take 1 tablet (5 mg total) by mouth 2 (two) times a day. 05/07/19 24 Active cholecalciferol (VITAMIN D-3) 25 mcg (1,000 unit) tablet Take 1 tablet (1,000 Units total) by mouth 1 (one) time each day. 01/10/20 23 Active clonazePAM (KlonoPIN) 1 mg tablet Take 1 Tablet by mouth 3 times daily as needed for Anxiety for up to 28 days. 05/27/19 24 Active cyanocobalamin (VITAMIN B-12) 1,000 mcg tablet Take 1 tablet (1,000 mcg total) by mouth 1 (one) time each day. 09/12/19 23 Active diclofenac (VOLTAREN) 1 % topical gel APPLY 2 GRAMS EXTERNALLY TO THE AFFECTED AREA TWICE DAILY NEEDED 05/22/19 21 Active dicyclomine (BENTYL) 20 mg tablet Take 1 tablet (20 mg total) by mouth 4 (four) times a day if needed. 10/17/19 22 Active diphenoxylate-atro pine (LOMOTIL) 2.5-0.025 mg per tablet Take 1 tablet by mouth 4 (four) times a day if needed. 01/24/20 23 Active ferrous sulfate 325 mg (65 mg iron) EC tablet TAKE 1 TABLET BY MOUTH EVERY OTHER DAY TAKE WITH VITAMIN .CAPSULE. TO HELP ABSORPTION 10/08/19 23 Active furosemide (LASIX) 20 mg tablet Take 1 tablet (20 mg total) by mouth 1 (one) time each day. 05/27/19 24 Active glycerin (adult) suppository Place 1 Suppository rectally as needed. Active hyoscyamine (ANASPAZ,LEVSIN) 0.125 mg tablet Take 1 Tablet by mouth 4 times daily as needed (abd pain) for up to 90 days. 07/19/19 22 Active docusate (COLACE) 50 mg/5 mL liquid Take by mouth. Active ibuprofen (ADVIL,MOTRIN) 600 mg tablet 11/23/19 21 Active lactobacillus acidoph-l.bulgar 100 million cell granules in packet Take by mouth. Active lactulose (CHRONULAC) solution Take 30 mL by mouth 3 times daily for 30 days. 10/08/19 24 Active loratadine (CLARITIN) 10 mg tablet Take 1 tablet by mouth daily for 360 days. 11/27/19 21 Active magnesium aspart,citrate,oxi de (Triple Magnesium Complex) 400 mg magnesium capsule Take by mouth. Activ e meclizine (ANTIVERT) 12.5 mg tablet TAKE 1 TABLET BY MOUTH THREE TIMES DAILY NEEDED FOR VERTIGO 09/01/19 24 Active meloxicam submicronized 5 mg capsule Take 5 mg by mouth daily as needed (pain (take with food)) for up to 14 days. 03/19/20 23 Active nitroglycerin (NITROSTAT) 0.4 mg SL tablet DISSOLVE 1 TABLET UNDER THE TONGUE WITH ONSET OF CHEST PAIN, MAY REPEAT TWICE MORE, APART 5 MINUTES, IF PAIN PERSISTS CALL 911 05/06/19 22 Active OMEGA-3 FATTY ACIDS ORAL Take by mouth. Acti ve omeprazole (PriLOSEC) [address] capsule Take 1 capsule (20 mg total) by mouth 1 (one) time each day. 12/18/19 23 Active ondansetron ODT (ZOFRAN-ODT) 4 mg disintegrating tablet Take 1 Tablet by mouth every 6 hours as needed for Nausea. DISSOLVE 1 TABLET ON THE TONGUE EVERY 6 HOURS 03/03/20 Active oxyCODONE (ROXICODONE) 5 mg immediate release tablet Take 1 Tablet by mouth every 4 hours as needed for Pain for up to 28 days. Max 5 per day 05/27/19 24 Active polyethylene glycol 200, bulk, liquid One capful (17g) once or twice daily as needed for constipation. 10/04/19 22 Active riboflavin (VITAMIN B2) 100 mg tablet Take 1 tablet (100 mg total) by mouth 1 (one) time each day. 09/05/19 18 Active sucralfate (CARAFATE) 1 gram tablet Take 1 Tablet by mouth 4 times daily for 90 days. 02/21/20 22 Active ergocalciferol (VITAMIN D-2) 1,250 mcg (50,000 unit) capsule Take 1 Capsule by mouth once a week. 09/10/19 22 Active vitamin E, dl,tocopheryl acet, (vitamin E, dl, acetate,) 450 mg (1,000 unit) capsule Take by mouth. Activ e white petrolatum ointment APPLY TO RECTAL AREA NEEDED 01/31/20 17 Active DULoxetine (CYMBALTA) [address] capsule TAKE 2 CAPSULES BY MOUTH DAILY 180 capsule 05/01/19 25 Active albuterol HFA (PROAIR HFA ; PROVENTIL HFA ; VENTOLIN HFA) 90 mcg/actuation inhaler INHALE 2 PUFFS INTO THE LUNGS EVERY 4 HOURS NEEDED FOR WHEEZING 8.5 each 1 07/05/19 25 Active hydrOXYzine HCL (ATARAX) 25 mg tablet Take 1 tablet (25 mg total) by mouth at bedtime. Active oxyBUTYnin XL (DITROPAN-XL) 5 mg 24 hr tablet TAKE 1 TABLET BY MOUTH EVERY DAY 90 tablet 08/05/19 25 Active atorvastatin (LIPITOR) 20 mg tablet TAKE 1 TABLET BY MOUTH EVERY DAY 30 tablet 10/06/19 25 Active Active Problems Problem Noted Date Diagnosed Date Chest pain 04/29/2022 Assessment & Plan (07/18/2024 3:49 PM EDT): She continues to endorse vague atypical chest discomfort. We discussed updating a stress test however she is adamant that she is unable to perform this as she recalls having a very negative experience many years ago. I did remind her she does had a regadenoson stress test performed in 2022 which did not report any adverse effects. However, we will schedule her for a coronary CTA to further evaluate whether or not ischemia is contributing to her symptoms. On cardioprotective medical therapy of aspirin and statin. Instructed to call 911 or go to the emergency room should the patient begin to experience chest pain or pressure lasting greater than 10 minutes does not resolve with rest. Orders: CT Angio Heart w 3D Imaging/Function; Future Cognitive impairment 06/05/2021 Chronic pain syndrome 05/29/2020 Aortic atherosclerosis ([facility] V24) 01/05/2020 Assessment & Plan (07/18/2024 3:49 PM EDT): Continue aspirin, statin therapy. Orders: ECG 12 lead Kyphosis of thoracic region 01/05/2020 Overview (01/22/2024): Moderate Osteoarthritis 01/05/2020 Overview (01/22/2024): Cervical, Thoracic, & Lumbar Spine Rheumatoid arthritis ([facility] V24, [facility] V28) 12/22/2018 SLE (systemic lupus erythema tosus) ([facility] V24, [facility] V28) 12/22/2018 SEFERINO positive 04/27/2017 Anxiety 12/18/2015 Depression 07/28/2012 Pulmonary nodules 10/08/2011 Overview (01/22/2024): 01/2019 Bilateral Stable, yearly low dose CT Migraine 07/02/2011 Overview (01/22/2024): [facility] Neurology Dr. Bro - 09/29/11 - increase gabapentin to 600 mg b.i.d.; EEG to rule out seizure secondary to confusion; repeat MRI in 6 months Osteoporosis 11/27/2009 COPD (chronic obstructive pu lmonary disease) ([facility] V24, [facility] V28) 12/22/2008 Mixed hyperlipidemia 09/12/2008 Vitamin D deficiency 09/12/2008 Diverticulosis 02/08/2008 Overview (01/22/2024): Incidental finding a colonoscopy 2001. 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 9) with comorbidity ([facility] V24, [facility] V28) 04/09/2005 Encounters Date Type Department Care Team Description 09/14/2024 Telephone [facility] - [facility] [address] [facility] [address] [place] [address] Provider, MD Snehal bone density from Last 3 Months Immunizations Name Administration Dates Next Due H1N1 Inj Preservative Free 04/18/2009 Influenza trivalent, 0.5mL ( Fluzone High-dose) 65yo and older 02/01/2016 Influenza trivalent, with pr eservative (Fluzone; Afluria) 6mo and older 12/27/2010,01/07/2010 PPD Test 06/06/2015 Pneumococcal conjugate 13 va lent (Prevnar 13, PCV13) 2mo and older 11/20/2014 Pneumococcal polysaccharide 23 valent (Pneumovax 23) 2yo and older 01/16/2014,12/22/2008 Td Tetanus diptheria (Tdvax) 7yo and older 03/09,10/05/2006 Surgical History Surgery Date Site/Laterality Comments COLONOSCOPY 01/03/2002 PROCEDURE: HISTORICAL COLONOSCOPY; COMMENT: Diverticulosis, negative/incomplete to 30 cm OTHER SURGICAL HISTORY 08/1999 PROCEDURE: LAPAROSCOPIC FUNDOPLASTY; COMMENT: Laparoscopic Loren fundoplication OTHER SURGICAL HISTORY 02/16/2004 PROCEDURE: RADIOLOGIC EXAM COLON SINGLE CONTRAST STUDY; COMMENT: Possible 5-mm colonic polyp, ascending colon COLONOSCOPY 02/25/2010 PROCEDURE: HISTORICAL COLONOSCOPY; COMMENT: Negative/incomplete to 30 cm BREAST BIOPSY 2009 Left PROCEDURE: BX BREAST; PERC NEEDLE CORE W/IMAG GUID; COMMENT: lt. breast bx-benign UPPER GASTROINTESTINAL ENDOSCOPY 02/04/2010 PROCEDURE: [place] UPPER GI ENDOSCOPY PERFORMED; COMMENT: fundoplication intact UPPER GASTROINTESTINAL ENDOSCOPY 04/01/2001 PROCEDURE: [place] UPPER GI ENDOSCOPY PERFORMED; COMMENT: normal APPENDECTOMY PROCEDURE: HISTORICAL APPENDECTOMY CARDIAC CATHETERIZATION 1996 PROCEDURE: HISTORICAL CARDIAC CATH; COMMENT: Negative coronary angiography OTHER SURGICAL HISTORY 03/12/2010 PROCEDURE: RADIOLOGIC EXAM COLON SINGLE CONTRAST STUDY; COMMENT: diverticulosis; no polyps Medical History Medical History Date Comments Diverticulosis 02/08/2008 DX:Diverticulosi s; COMMENT: Incidental finding a colonoscopy 2001. COPD (chronic obstructive pu lmonary disease) ([facility] V24, [facility] V28) 12/22/2008 DX:COPD (chronic o bstructive pulmonary disease) ([facility]) JENNIFER (obstructive sleep apnea) 03/20/2006 DX :JENNIFER (obstructive sleep apnea); COMMENT: CPAP Complex sleep apnea syndrome 01/05/2020 DX: Complex sleep apnea syndrome; COMMENT: Mixed sleep apnea JENNIFER and COPD overlap syndrom e ([facility] V24, [facility] V28) 01/05/2020 DX:JENNIFER and COPD overlap syn drome ([facility]) GERD (gastroesophageal reflu x disease) 04/09/2005 DX:GERD (gastroesophageal re flux disease); COMMENT: Loren Fundoplication Pulmonary nodules 10/08/2011 DX:Pulmonary n odules; COMMENT: 01/2019 Bilateral Stable, yearly low dose CT Migraine 07/02/2011 DX:Migraine; COM MENT: [facility] Neurology Dr. Bro - 09/29/11 - increase gabapentin to 600 mg b.i.d.; EEG to rule out seizure secondary to confusion; repeat MRI in 6 months SLE (systemic lupus erythema tosus) ([facility] V24, [facility] V28) 12/22/2018 DX:SLE (systemic lupus eryt hematosus) ([facility]) Osteoarthritis 01/05/2020 DX:Osteoarthriti s; COMMENT: Cervical, Thoracic, & Lumbar Spine Vitamin D deficiency 09/12/2008 DX:Vitamin D deficiency Rheumatoid arthritis ([facility] V24, [facility] V28) 12/22/2018 DX:Rheumatoid arthritis ([facility] ) Osteoporosis 11/27/2009 DX:Osteoporosis Mixed hyperlipidemia 09/12/2008 DX:Mixed hy perlipidemia History of DVT (deep vein thrombosis) 03/20/2006 DX:History of DVT (deep vein thrombosis) Fibromyalgia 04/09/2005 DX:Fibromyalgia; COMMENT: On Cymblata; side effects on Lyrica IMO update Ds DNA antibody positive 04/27/2017 DX:Ds D NA antibody positive Depression 07/28/2012 DX:Depression Anxiety 12/18/2015 DX:Anxiety SEFERINO positive 04/27/2017 DX:SEFERINO positive Severe obesity (BMI 35.0-39. 9) with comorbidity ([facility] V24, [facility] V28) 04/09/2005 DX:Severe obesity (BMI 35.0- 39.9) with comorbidity ([facility]) Aortic atherosclerosis ([facility] V24) 01/05/2020 DX:Aortic atherosclerosis ([facility]) Kyphosis of thoracic region 01/05/2020 DX:K yphosis of thoracic region; COMMENT: Moderate Family History Medical History Relation Name Comments Lung cancer Brother 1 smoker Breast cancer Daughter 52 Other: Other Father Tb meningitis Heart attack Mother age 38, Alzheim ers Disease Colon cancer Neg Hx Relation Name Status Comments Brother 1 Brother 2 also has 10 1/2 sibs Brother 3 (Age 74) lung cance r (smoker) Daughter 52 Alive Father (Age 27) menningiti s TB related Mother (Age 82) alzheimers Other 1 Alive nephew - brain ca Other 2 Alive niece - cirrhos is Social History Tobacco Use Types Packs/Day Years Used Date Smoking Tobacco: Former Cigarettes 1 49.4 0 09/11/1959 - 01/24/2009 Smokeless Tobacco: Never Alcohol Use Standard Drinks/Week Comments No 0 (1 standard drink = 0.6 oz pur e alcohol) Comments Unknown Sex and Gender Information Value Date Recorded Sex Assigned at Not on file Legal Sex Female 7:41 AM EST Gender Identity Not on file Sexual Orientation Not on file Obstetrics History Last Filed Vital Signs Vital Sign Reading Time Taken Comments Blood Pressure 130/56 07/18/2024 2:38 PM EDT Pulse 58 07/18/2024 2:38 PM EDT Temperature - - Respiratory Rate - - Oxygen Saturation 96% 07/18/2024 2:38 PM EDT Inhaled Oxygen Concentration - - Weight 84.8 kg (187 lb) 07/18/2024 2:38 PM EDT Height 157.5 cm (5' 2 ) 07/18/2024 2:38 PM EDT Body Mass Index 34.2 07/18/2024 2:38 PM EDT Plan of Treatment Upcoming Encounters Date Type Department Care Team (Late st Contact Info) Description 02/08/2025 2:40 PM EDT Office Visit [facility] - [facility] [address] [facility] [address] [place] [address] Maryanne Barton, BRAEDEN [address] [place] [address] Health Maintenance Due Date Last Done Comments Zoster Vaccines (1 of 2) 12/30/1993 RSV Immunization Adult Patients (1 - 1-dose 75+ series) 12/30/2018 Falls Risk Assessment 03/29/2022 Medicare Annual Wellness Visit 03/29/2022 Social Influencers of Health Screening 03/29/2022 COVID-19 Vaccine ( - season) 2023 Depression Screening 04/20/2024 Influenza Vaccine (#1) 2024 6, 12/27/2010, 01/07/2010, Additional history exists Cholesterol Screening (Lipid Panel) 01/01/2028 2022 DTaP,Tdap,and Td Vaccines (3 - Td or Tdap) 03/09/2029 03/09/2019, 10/05/2006 Osteoporosis Screening (Bone Density Screening) 08/08/2034 08/08/2024, 09/09/2021, 08/14/2020, Additional history exists Pneumococcal Vaccine: 50+ Years Completed 11/20/2014, 01/16/2014, 12/22/2008 Lung Cancer Screening (Low Dose CT) Discontinued 05/25/2024, 04/15/2023, 04/08/2022, Additional history exists HIB Vaccines Aged Out No longer eligi ble based on patient's age to complete this topic HPV Vaccines Aged Out No longer eligi ble based on patient's age to complete this topic Hepatitis A Vaccines Aged Out No long er eligible based on patient's age to complete this topic Hepatitis B Vaccines Aged Out No long er eligible based on patient's age to complete this topic IPV Vaccines Aged Out No longer eligi ble based on patient's age to complete this topic MMR Vaccines Aged Out No longer eligi ble based on patient's age to complete this topic Meningococcal ACWY Vaccine Aged Out N o longer eligible based on patient's age to complete this topic Meningococcal B Vaccine Aged Out No l onger eligible based on patient's age to complete this topic RSV Immunization Patients Under 20 months Aged Out No longer eligible based on patient's age to complete this topic Varicella Vaccines Aged Out No longer eligible based on patient's age to complete this topic Procedures Procedure Name Priority Date/Time Associated Diagnosis Comments BD BONE DENSITY DXA AXIAL SKELETON Routine 08/08/2024 2:36 PM EDT Osteopenia after menopause Age-related osteoporosis without current pathological fracture Vitamin D deficiency, unspecified CT LUNG SCREENING Routine 05/25/2024 1:5 9 PM EST Encounter for screening for lung cancer Cigarette smoker LIPID PANEL Routine 2022 from Last 3 Months or Most Recently Relevant to Health Maintenance Results * BD Bone Density DXA Axial Skeleton (08/08/2024 2:36 PM EDT) Anatomical Region Laterality Modality Wrist, Hip, L-spine Bone Densito metry 08/09/2024 8:04 AM EDT Impressions 08/09/2024 8:06 AM EDT 1. Osteoporosis. 2. FRAX analysis yields a 10-year probability of major osteoporotic fracture of 68.5% and a 10-year probability of hip fracture of 60.9%. Code 69898 -------- FINAL REPORT -------- Dictated By: Rufino Brizuela Dictated Date: 08/09/2024 08:04 ET Assigned Physician: Rufino Brizuela Reviewed and Electronically Signed By: Rufino Brizuela Signed Date: 08/09/2024 08:06 ET Workstation ID: [id number] Transcribed By: Self Edit Transcribed Date: 08/09/2024 08:04 ET Narrative 08/09/2024 8:06 AM EDT HISTORY: The patient is an 78-year-old postmenopausal female with clinical concern for metabolic bone disease. FINDINGS: Dual energy x-ray absorptiometry of the lumbar spine and femurs is performed. The mean bone mineral density at L1-L4 (with the exclusion of L2) is 0.732 gm/cm2 which is 63% of that of young normals and 71% of that of age matched controls. This yields a T-score of -3.7 and a Z-score of -2.5 which is diagnostic of osteoporosis. The mean bone mineral density of the femurs bilaterally is 0.822 gm/cm2 which is 82% of that of young normals and 101% of that of age matched controls. This yields a T-score of -1.5 and a Z-score of 0.1 which is diagnostic of osteopenia. The T-score of the right femoral neck is -2.3 and that of the left femoral neck is -2.2 which is diagnostic of osteopenia. Procedure Note Rufino Brizuela MD - 08/09/2024 HISTORY: The patient is an 78-year-old postmenopausal female withclinical concern for metabolic bone disease. FINDINGS: Dual energy x-ray absorptiometry of the lumbar spine and femursis performed. The mean bone mineral density at L1-L4 (with the exclusionof L2) is 0.732 gm/cm2 which is 63% of that of young normals and 71% ofthat of age matched controls. This yields a T-score of -3.7 and a Z-scoreof -2.5 which is diagnostic of osteoporosis. The mean bone mineral density of the femurs bilaterally is 0.822 gm/rm2juuzb is 82% of that of young normals and 101% of that of age matchedcontrols. This yields a T-score of -1.5 and a Z-score of 0.1 which isdiagnostic of osteopenia. The T- score of the right femoral neck is -2.3and that of the left femoral neck is -2.2 which is diagnostic ofosteopenia. IMPRESSION: 1. Osteoporosis. 2. FRAX analysis yields a 10-year probability of major osteoporoticfracture of 68.5% and a 10-year probability of hip fracture of 60.9%. Code 16432 -------- FINAL REPORT -------- Dictated By: Rufino Brizuela Dictated Date: 08/09/2024 08:04 ET Assigned Physician: Rufino Brizuela Reviewed and Electronically Signed By: Rufino Brizuela Signed Date: 08/09/2024 08:06 ET Workstation ID: [id number] Transcribed By: Self Edit Transcribed Date: 08/09/2024 08:04 ET Neetu QUIROS IMG DXA PROCEDURES Final Re sult * CT Lung Screening (05/25/2024 1:59 PM EST) Anatomical Region Laterality Modality Chest Computed Tomogra phy 05/26/2024 3:33 PM EST Impressions 05/26/2024 3:38 PM EST Small bilateral pulmonary nodules are overall similar to the prior study. No new or enlarging pulmonary nodules. Lung RADS 2, recommend low-dose screening chest CT in 12 months -------- FINAL REPORT -------- Dictated By: Sandy Martin Dictated Date: 05/26/2024 15:33 ET Assigned Physician: Sandy Martin Reviewed and Electronically Signed By: Sandy Martin Signed Date: 05/26/2024 15:38 ET Workstation ID: [id number] Transcribed By: Self Edit Transcribed Date: 05/26/2024 15:33 ET Narrative 05/26/2024 3:38 PM EST INDICATION: Current smoker with 64 pack-year smoking history FINDINGS: Low-dose CT scan of the chest obtained as a lung cancer screening study. Scanner: [employer] 128 slice VCT Dose reduction technique: ASIR (Adaptive statistical iterative reconstruction) and/or AEC (automated exposure control) Dose: total exam DLP 167 mGY per cm COMPARISON: Compared to multiple prior studies most recent from April 14, 2023. Lung: Emphysematous changes are again noted. Patchy bilateral groundglass attenuation most severe within the upper lobes anteriorly with associated mild reticulation, unchanged. Scattered pulmonary nodules ranging from 2 to 6 mm are again noted and unchanged. No definite new or enlarging pulmonary nodules. Lymph nodes: No thoracic lymphadenopathy. Mediastinum: Trachea and esophagus are within normal limits. Heart normal in size and shape without pericardial effusion. Mediastinal vascular structures are normal in course and caliber. Bony structures: Unchanged. Procedure Note Sandy Martin MD - 05/26/2024 INDICATION: Current smoker with 64 pack-year smoking history FINDINGS: Low-dose CT scan of the chest obtained as a lung cancerscreening study. Scanner: [employer] 128 slice VCT Dose reduction technique: ASIR (Adaptive statistical iterativereconstruction) and/or AEC (automated exposure control) Dose: total exam DLP 167 mGY per cm COMPARISON: Compared to multiple prior studies most recent from 2022. Lung: Emphysematous changes are again noted. Patchy bilateral groundglassattenuation most severe within the upper lobes anteriorly with associatedmild reticulation, unchanged. Scattered pulmonary nodules ranging from 2to 6 mm are again noted and unchanged. No definite new or enlargingpulmonary nodules. Lymph nodes: No thoracic lymphadenopathy. Mediastinum: Trachea and esophagus are within normal limits. Heart normalin size and shape without pericardial effusion. Mediastinal vascularstructures are normal in course and caliber. Bony structures: Unchanged. IMPRESSION: Small bilateral pulmonary nodules are overall similar to the priorstudy. No new or enlarging pulmonary nodules. Lung RADS 2, recommend low-dose screening chest CT in 12 months -------- FINAL REPORT -------- Dictated By: Sandy Martin Dictated Date: 05/26/2024 15:33 ET Assigned Physician: Sandy Martin Reviewed and Electronically Signed By: Sandy Martin Signed Date: 05/26/2024 15:38 ET Workstation ID: [id number] Transcribed By: Self Edit Transcribed Date: 05/26/2024 15:33 ET Odin Seals MD [facility] CT PROCEDURES Final Result * (ABNORMAL) Lipid panel (2022) LDL/HDL Ratio 4 0 - 4 Triglycerides 164(A) 0 - 150 mg/dL Cholesterol 262(A) 0 - 200 mg/dL HDL 62 >=40 mg/dL LDL Cholesterol 168(A) 0 - 100 mg/dL Blood Venous blood specimen / Unknown Historical Provider LAB BLOOD ORDERABLES Priya l Result from Last 3 Months or Most Recently Relevant to Health Maintenance Insurance [employer] MED[employer] Member Subscriber Plan / Payer (Ef fective 2016-Present) Name:Xiomy Mccarty Relation to Subscriber:Self Name:Xiomy Mccarty Payer ID:[id number] Group ID:[id number] Type:Not on file Address: [facility] [address] [place] [id number] Care Teams Stagecraft Teacher Relationship Specialty Start Date End Date Physician, No Pcp PCP - General 11/04/24
--- OUTSIDE RECORDS SUMMARY | 2024-12-06 12:59 | XMS_ITS | Clinical Summary ---
Author Organization [facility] Address [address] [place] [phone] Phone Care Team Providers Care Appraisal Technician Name Role Phone Adalid Burch MD Primary Care Provider U navailable Allergies Active Allergy Reactions Criticality Noted Date Comments Amoxicillin-Pot Clavulanate 06/08/19 21 Sulfamethoxazole-Trimethoprim 2020 Ciprofloxacin Hcl 06/08/2020 Desipramine 06/08/2020 Flu Vac 2011 (18-64yrs)(Pf) 06/08/19 21 Tetanus Immune Globulin 06/08/2020 Medications oxyCODONE 5 MG immediate release tablet Take 5 mg by mouth every 4 (four) hours as needed. Active morphine 30 mg TRer Take 1 tablet by mouth every 12 (twelve) hours. Active clonazePAM (KLONOPIN) 1 MG tablet Take 1 mg by mouth 3 (three) times a day. Active hydrOXYzine HCL (ATARAX) 10 MG tablet Take 10 mg by mouth 3 (three) times a day as needed. Active furosemide (LASIX) 20 MG tablet Take 20 mg by mouth daily. Take 1-2 tabs by mouth daily as needed. Active omeprazole (PRILOSEC) 20 mg TbEC Take 20 mg by mouth daily before breakfast. Active DULoxetine (CYMBALTA) 60 MG capsule Take 60 mg by mouth daily. Active ondansetron (ZOFRAN) 4 MG tablet Take 4 mg by mouth every 8 (eight) hours as needed. Active ergocalciferol (DRISDOL) 50,000 unit capsule Take 50,000 Units by mouth once a week. Active loratadine (CLARITIN) 10 mg tablet Take 10 mg by mouth daily. Active gabapentin (NEURONTIN) 400 MG capsuleIndicati ons:as needed for restless leg syndrome Take 400 mg by mouth 3 (three) times a day. Indications: as needed for restless leg syndrome Active nitroglycerin (NITROSTAT) 0.[address] 0.4 mg under the tongue every 5 (five) minutes as needed. Active buPROPion (WELLBUTRIN SR) 150 MG SR 12 hr tablet Take 150 mg by mouth 2 (two) times a day. Active meclizine (ANTIVERT) 12.5 mg tablet Take 12.5 mg by mouth 3 (three) times a day as needed. Active tiotropium (SPIRIVA HANDIHALER) 18 mcg inhalation capsule Inhale 18 mcg into the lungs daily. Active riboflavin, vitamin B2, (,VITAMIN B-2,) 100 mg Tab Take 100 mg by mouth 2 (two) times a day. Active docosahexaenoic acid/epa (FISH OIL ORAL) Take by mouth. Activ e aspirin 81 MG EC tablet Take 81 mg by mouth daily. Active ALBUTEROL INHL Inhale into the lungs. Active atorvastatin (LIPITOR) 20 MG tablet Take 20 mg by mouth daily. Active cetirizine (ZYRTEC) 10 MG tablet Take 10 mg by mouth daily. Active memantine (NAMENDA) 5 MG tablet Take 5 mg by mouth daily. Active diclofenac sodium (VOLTAREN) 1 % Gel Apply 2 g topically 2 (two) times a day. Active ibuprofen (ADVIL,MOTRIN) 600 MG tablet TAKE 1 TABLET(600 MG) BY MOUTH EVERY 8 HOURS WITH MEALS NEEDED FOR PAIN 60 tablet 1 Active hyoscyamine (ANASPAZ,LEVSIN ) 0.125 mg tablet Take 0.125 mg by mouth every 4 (four) hours as needed for cramping (specific location in comments). Active MAGNESIUM ORAL Take 400 mg by mouth. Active pantoprazole (PROTONIX) 40 MG tablet Take 40 mg by mouth daily. Active white petrolatum (PETROLEUM JELLY) ointment Apply topically as needed for dry skin. Active bacillus coagulans-inuli n 1 billion-250 cell-mg Cap Take 250 mg by mouth daily. Active fluticasone/ume clidin/vilanter (TRELEGY ELLIPTA INHL) Inhale into the lungs. Active vitamin E acetate (VITAMIN E ORAL) Take by mouth. Activ e hydrOXYchloroQU INE (PLAQUENIL) 200 mg tablet Take 1 tablet (200 mg total) by mouth 2 (two) times a day. 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 I told pt that I will not be able to continue filling prescription unless eye exam is booked. She is considering changing firmware architect to one closer to home in [place] Assessment & Plan (09/16/2021 3:49 PM EDT): 75 yo female who reports 2 yr hx of SLE on Plaquenil Recent derm eval per pt with skin lupus vs psoriasis treated with topical cream with resolution of rash Labs did have decreaaed compliments and mild elevation CRP but otherwise no signs or symptoms to suggest active systemic lupus Repeat labs today Pt asked to retrieve copy of derm report for my review Reminded pt that she needs eye exam to continue Plaquenil, it has been well over a year. I told pt that I will not be able to continue filling prescription unless eye exam is booked. She is considering changing firmware architect to one closer to home in [place] Social History Tobacco Use Types Packs/Day Years Used Date Smoking Tobacco: Former Cigarettes 1 50 1 - 01/24/2009 Smokeless Tobacco: Never Alcohol Use Standard Drinks/Week Comments Never 0 (1 standard drink = 0.6 oz pur e alcohol) Education Answer Date Recorded Are you interested in more education? Not on mitch e 08/15/2022 Are you concerned about learning? Not on file 08/15/2022 No 08/15/2022 No 08/15/2022 Digital Access Answer Date Recorded No 09/16/2022 No 09/16/2022 Reliable internet access at home? Not on file 09/16/2022 Device with a working camera? Not on file Comments Unknown Sex and Gender Information Value Date Recorded Sex Assigned at Not on file Legal Sex Female 12:56 PM EST Gender Identity Not on file Sexual Orientation Not on file Last Filed Vital Signs Vital Sign Reading Time Taken Comments Blood Pressure 124/60 09/12/2021 2:18 PM EDT Pulse 67 09/12/2021 2:18 PM EDT Temperature - - Respiratory Rate 16 09/12/2021 2:18 PM EDT Oxygen Saturation 97% 09/12/2021 2:18 PM EDT Inhaled Oxygen Concentration - - Weight 86.2 kg (190 lb) 12/21/2020 12:57 PM EDT Height 157.5 cm (5' 2.01 ) 09/12/2021 2:18 PM ED T Body Mass Index 34.74 12/21/2020 12:57 PM EDT Plan of Treatment Health Maintenance Due Date Last Done Comments LIPID PANEL 1943 DEPRESSION SCREENING 1955 SMOKING Hx and SMOKELESS TOBACCO SCREENING 12/30/1956 ZOSTER VACCINES (1 of 2) 12/30/1993 RSV VACCINE (1 - 1-dose 75+ series) 12/30/2018 COVID-19 VACCINE (2023-2 5 season) 2023 Adult Td,Tdap Booster 03/09/2029 03/09/2019 , 10/05/2006 PNEUMOCOCCAL VACCINES (50+ years) Completed 11/20/2014, 01/16/2014, 12/22/2008 OSTEOPOROSIS SCREENING INITI AL (ONE-TIME) Completed 08/14/2020 HEPATITIS A VACCINES Aged Out No long er eligible based on patient's age to complete this topic HIB VACCINES Aged Out No longer eligi ble based on patient's age to complete this topic MENINGOCOCCAL VACCINES (ACWY) Aged Out No longer eligible based on patient's age to complete this topic MENINGOCOCCAL VACCINES (B) Aged Out N o longer eligible based on patient's age to complete this topic Medical Devices Not on file Procedures Procedure Name Priority Date/Time Associated Diagnosis Comments BD DXA AXIAL (SPINE) WITH HIP Routine 08/14/2020 12:54 PM EDT Systemic lupus erythematosus, unspecified SLE type, unspecified organ involvement status from Last 3 Months or Most Recently Relevant to Health Maintenance Results * BD DXA AXIAL (SPINE) WITH HIP (08/14/2020 12:54 PM EDT) Anatomical Region Laterality Modality Bone Density Bone Density 08/14/2020 1:05 PM EDT Impressions 08/14/2020 1:06 PM EDT 1.Lumbar spine and left hip osteopenia. 2.Normal right hip bone density. Narrative 08/14/2020 1:06 PM EDT COMPARISON: None. BONE DENSITY FINDINGS: History: This is a 74-year-old postmenopausal female. Evaluation of the lumbar spine and hips was performed and felt to be technically adequate. Total bone mineral density in the L1-L4 vertebral bodies was calculated at 0.798 gm/cm2 with a T-score of -2.3 falling within the WHO classification of osteopenia. Z-score of 0.2.Fracture risk increased. Total bone mineral density in the right hip was calculated at 0.830 gm/cm2 with a T-score of -0.9 falling within the WHO classification of normal. Z-score of 1. Total bone mineral density in the left hip was calculated at 0.787 gm/cm2 with a T-score of -1.3 falling within the WHO classification of osteopenia. Z-score of 0.6. Procedure Note Bladimir Starkey MD - 08/14/2020 COMPARISON: None. BONE DENSITY FINDINGS: History: This is a 74-year-old postmenopausal female. Evaluation of the lumbar spine and hips was performed and felt to betechnically adequate. Total bone mineral density in the L1-L4 vertebral bodies was calculated at0.798 gm/cm2 with a T-score of -2.3 falling within the WHO classificationof osteopenia. Z-score of 0.2.Fracture risk increased. Total bone mineral density in the right hip was calculated at 0.830 gm/wg9cemv a T-score of -0.9 falling within the WHO classification of normal.Z-score of 1. Total bone mineral density in the left hip was calculated at 0.787 gm/bc0wnbh a T-score of -1.3 falling within the WHO classification ofosteopenia. Z-score of 0.6. IMPRESSION: 1.Lumbar spine and left hip osteopenia. 2.Normal right hip bone density. Bladimir Castillo MD IMG BD BONE DENSI TY DEXA Final Result from Last 3 Months or Most Recently Relevant to Health Maintenance Insurance MEDICARE REPLACEMENT MEDICARE REPLACEMENT UNIT [address] [place] [id number] [place] [address] MEDICARE REPLACEMENT MEDICARE REPLACEMENT MEDICARE REPLACEMENT MEDICARE REPLACEMENT UNIT [address] [place] [address] [place] [address] [address] [facility] MEDICARE REPLACEMENT [place] [id number] Care Teams Appraisal Technician Relationship Specialty Start Date End Date Adalid Burch MD PCP - General Internal Medicine 05/29/20 Additional Source Comments The information contained in this document represents components of the legal health record. It is not the complete legal health record.[facility]
== END 2024-12-06 12:30 | disposition home or self-care (01) ==
LOC: HO.HSM 11:26
PROVIDERS: PCP Internal Medicine; Referring Provider Internal Medicine; Visit Provider Psychiatry & Neurology Neurology
DX: R55 Syncope and collapse (principal); G44.209 Tension-type headache, unspecified, not intractable; G62.9 Polyneuropathy, unspecified
CPT/HCPCS: 99214

== ENCOUNTER → 2024-12-06 11:25 | Outpatient (BNVA) | payer OTHER, SELFPAY | PROVIDERS: PCP Internal Medicine; Referring Provider Internal Medicine; Visit Provider Psychiatry & Neurology Neurology | DX: R55 Syncope and collapse (principal); G44.209 Tension-type headache, unspecified, not intractable; G62.9 Polyneuropathy, unspecified | CPT/HCPCS: 99212 ==

== ENCOUNTER 2025-02-28 11:52 | Outpatient (AMB) | payer OTHER, SELFPAY ==
--- NOTE | 2025-02-28 12:02 | MHC.OFFVIS ---
Intake Visit Reasons: 3M Allergies amoxicillin Allergy (Unknown, Verified 06/22/23 21:40) Unknown ciprofloxacin (Cipro) Allergy (Unknown, Verified 06/22/23 21:40) Unknown Sulfa (Sulfonamide Antibiotics) Allergy (Unknown, Verified 06/22/23 21:40) Unknown No Known Allergies (No Known Allergies*) Allergy (Unverified 01/05/20 14:47) HPI Comments Details: No further syncope or amnesia episodes.. She had a possible Syncopal episode in Feb 2024? was admitted to [facility]. Has amnesia for 4-5 days. No medical records. Now getting lot of pressure in head. Scalp sensitivity. Using a nasal pillow for JENNIFER with CPAP at 15cm.. Feels pressure in base of skull and eye balls. Feels exhausted.? Getting pains under breast and chest pains that can last 2 hrs.?? She has multiple medical problems and multiple complaints who has been on a lot of medications including large doses of narcotics chronically for a diagnosis of fibromyalgia and had been seeing Dr. Shelby at [facility]. She says she gets a lot of headaches on a daily basis some days feels dizzy and out of it. Legs hurt at night and go numb and her sleep is disrupted. Frequent headaches and nape of neck swells. She is using shoes that seem to help her neuropathic symptoms. Has an appoinment with eye doctor for blurring and change in color vision and eye balls hurt. She is also having spells of sweating and tremors. [facility] Medical History (Updated 12/06/24 @ 12:18 by [place] Lombardi MD) Sensory neuropathy JENNIFER on CPAP Narcotic dependence Depression with anxiety Fibromyalgia Tension headache Social History Alcohol intake: former Review of Systems Const Details: ?General/Constitutional:? Change in appetitedenies.? Chillsdenies.? Fatigueadmits.? Feverdenies.? Weight gaindenies.? Weight lossdenies. ???Sleep:? Difficulty getting to sleepdenies.? Difficulty maintaining sleepdenies?.? Urge to move legsadmits.? Teeth grindingdenies.? Shouting or Kicking during sleepdenies.? Abnormal behavior during sleepdenies.? Excessive sleepdenies.? Snoringadmits.? Daytime sleepinessdenies. ???Respiratory:? Shortness of breathadmits.? Chest painadmits.? Coughadmits. ???Cardiovascular:? Chest pain at restdenies.? Chest pain with exertiondenies.? Claudicationdenies.? Dizzinessdenies.? Fluid accumulation in the legsdenies.? Irregular heartbeatdenies.? Palpitationsadmits. ???Gastrointestinal:? Abdominal paindenies.? Constipationadmits.? Diarrheadenies.? Difficulty swallowingdenies.? Heartburndenies.? Nauseaadmits.? Rectal bleedingdenies. ???Genitourinary:? Frequent urinationadmits.? Urgencyadmits.? Incontinenceadmits.? Erectile Dysfunctiondenies. ???Musculoskeletal:? Neck paindenies.? Back painadmits.? Muscle achesadmits.? Painful jointsadmits.? Sciaticadenies.? Weaknessdenies. ???Neurologic:? Difficulty swallowingdenies.? Balance difficultyadmits.? Coordinationnormal.? Difficulty speakingdenies.? Dizzinessadmits.? Faintingdenies.? Gait abnormalitydenies.? Headacheadmits.? Loss of strengthdenies.? Loss of use of extremitydenies.? Low back paindenies.? Memory lossadmits.? Seizuresdenies.? Ticsdenies.? Tingling/Numbnessadmits.? Transient loss of visiondenies.? Tremordenies. ???Psychiatric:? Anxietyadmits.? Auditory/visual hallucinationsdenies.? Delusionsdenies.? Depressed moodadmits.? Stressorsadmits.? Substance abusedenies.? Suicidal thoughtsdenies. Physical Exam Neuro Other: Abnormal neurological findings:??none.?Mental Status:??alert and oriented X 3,?Normal attention, orientation, memory and affect.?Cranial Nerves:??Pupils are equal, round and reactive to light. Fundoscopy shows normal disc bilaterally. External occular muscles are intact. Visual willard are full, no ptosis. Face is symmetrical, no facial weakness or droop. Facial sensations are normal. Tongue protrudes in midline. Palate elevates symmetrically. Shoulder shrugging is normal..?Motor Examination:??Normal muscle tone, bulk and strength,?No atrophy or fasciculations,?No drift of the extended upper extremities,?Deep tendon reflexes are 2+?,?Plantars are flexor?.?Straight Leg Raising:??90 degrees.?Sensory Exam:??Normal light touch, temperature, pinprick, vibration and joint-position sensations?,?Rhomberg sign is absent.?Coordination:??no ataxia,?no titubation,?ooufpu-sv-soez, vbgq-erml-uluk test and rapid alternating movements were normal.?Gait Exam:??Within normal limits.?Cerebellar Signs:??Sbusib-wh-xlig and ierg-jd-esev is normal,?no dysdiadochokinesia?.?Extrapyramidal System:??No tremor, rigidity with normal facial expressions,?No bradykinesia, no bradyphrenia. Normal arm swing and posture. No propulsion or retropulsion.?Speech:??Normal,?no dysphasia or dysarthria..? Mini Mental Status Exam: Level of Consciousness:??Alert.?Orientation:??Knows correct year, month, date, day and season,?Knows correct city, county and state. Knows correct location and floor.?Registration:??Able to register 3 objects.?Attention:??Serial 7's performed accurately.?Recall:??Able to recall 3 out of 3 objects.?Language:??Normal spontaneous speech, fluency, repetition,naming, comprehension, reading and writing.?Total Score:??30/30.? Assessment & Plan Assessment & Plan (1) Syncope: Code(s): R55 - Syncope and collapse Category: Medical (2) Tension headache: Code(s): G44.209 - Tension-type headache, unspecified, not intractable Category: Medical (3) Sensory neuropathy: Comment: 11/11/23 NCV/EMG ALL Early Carpal tunnel syndrome on the left in the upper extremities. 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 Normal EMG in the right L4-S1 innervated muscles. Code(s): G62.9 - Polyneuropathy, unspecified Category: Medical Plan Obtain records from [facility] in December to February 2024.Continue current meds . Use CPAP at least 4-6 hrs Coding Level of Care Code Est Pt Level 4 (79038) Diagnoses Syncope R55 Tension headache G44.209 Sensory neuropathy G62.9
--- OUTSIDE RECORDS SUMMARY | 2025-02-28 13:54 | XMS_ITS | Continuity of Care Document ---
Author Name [facility], Medical Address [address] [place] [address] Organization Unknown Address [address] [place] [address] Medications No known medications Problems No known problems
--- OUTSIDE RECORDS SUMMARY | 2025-02-28 13:54 | XMS_ITS | Encounter Summary ---
Author Organization [facility] Address [address] [place] [address] Care Team Providers Care Opinion Polls Survey Worker Name Role Phone Kristi Hays Primary Care Provider [phone] Reason for Visit * Reason Comments Med Refill Encounter Details Date Type Department Care Team (Late st Contact Info) Description 02/26/2025 Refill [facility] [address] [place] [address] Communications Coordinator: Arnaud Ahn MD [address] [place] [address] Fibromyalgia Social History Tobacco Use Types Packs/Day Years [...] on file Sexual Orientation Not on file documented as of this encounter Miscellaneous Notes * Telephone Encounter - Cece Abdullahi LPN - 02/27/2025 11:15 AM EST Refill request received for Requested Prescriptions Pending Prescriptions Disp Refills pregabalin (LYRICA) 75 mg capsule [Pharmacy Med Name: PREGABALIN 75 MG CAPSULE] 30 capsule Sig: TAKE 1 CAPSULE BY MOUTH NIGHTLY. Patients next appointment with clinic Visit date not found Future Appointments Date Time Provider Department Center 09/06/2025 4:00 PM Arnaud Grove MD [facility] [place] Last Rx sent in on 08/17/2024 w/ 2 refills Discontinued by: Arnaud Grove MD on 02/21/2025 09:42 Reason: Allergic Response/Adverse Reaction Medication is discontinued and also see encounter on 02/21/25 follow up appt. shows provider D/C the medication. Called patient pharmacy to let them know medication is d/c. documented in this encounter Plan of Treatment Upcoming Encounters Date Type Department Care Team (Late st Contact Info) Description 09/06/2025 4:00 PM EDT Follow-Up [facility] [address] [place] [phone] Communications Coordinator: Arnaud Ahn MD [address] [place] [phone] documented as of this encounter Visit Diagnoses Diagnosis Fibromyalgia Unspecified myalgia and myositis documented in this encounter Care Teams Opinion Polls Survey Worker Relationship Specialty Start Date End Date Kristi Hays [address] [place] [phone] PCP - General 02/21/25 documented as of this encounter
--- OUTSIDE RECORDS SUMMARY | 2025-02-28 13:54 | XMS_ITS | Clinical Summary ---
Author Organization [facility] Address [address] [place] [phone] Phone Care Team Providers Care Apron Operator Name Role Phone Adalid Burch MD Primary [...] exam is booked. She is considering changing coat cutter to one closer to home in [place] Assessment & Plan (09/16/2021 3:49 PM EDT): [...] exam is booked. She is considering changing coat cutter to one closer to home in [place] Social History Tobacco Use Types Packs/Day Years [...] Health Maintenance Due Date Last Done Comments DEPRESSION SCREENING 1955 ZOSTER VACCINES (1 of 2) 12/30/1993 RSV VACCINE (1 - 1-dose 75+ series) 12/30/2018 INFLUENZA VACCINE (#1) 2024 6, 12/27/2010, 01/07/2010, Additional history exists COVID-19 VACCINE ( season) 2024 Adult Td,Tdap Booster 03/09/2029 03/09/2019, 007 PNEUMOCOCCAL VACCINES (50+ years) Completed 11/20/2014, 01/16/2014, 12/22/2008 OSTEOPOROSIS SCREENING INITIAL (ONE-TIME) Completed 08/14/2020 HEPATITIS A VACCINES Aged Out No long er eligible based on patient's age to complete this topic HIB VACCINES Aged Out No longer eligi ble based on patient's age to complete this topic IPV VACCINES Aged Out No longer eligi ble [...] the right hip was calculated at 0.830 gm/fx9amdy a T-score of -0.9 falling within the WHO classification of normal.Z-score of 1. Total bone mineral density in the left hip was calculated at 0.787 gm/yr3aryv a T-score of -1.3 falling within the WHO classification ofosteopenia. Z-score of 0.6. IMPRESSION: 1.Lumbar spine and left hip osteopenia. 2.Normal right hip bone density. Bladimir Castillo MD IMG BD BONE DENSI TY DEXA Final Result from Last 3 Months or Most Recently Relevant to Health Maintenance Insurance MEDICARE REPLACEMENT [place] [id number] [facility] MEDICARE REPLACEMENT [place] [id number] MEDICARE REPLACEMENT MEDICARE REPLACEMENT UNIT [address] [place] [id number] [facility] MEDICARE [place] [address] [place] [address] [place] [place] [address] MEDICARE REPLACEMENT [address] [place] [id number] [facility] MEDICARE REPLACEMENT [facility] MEDICARE REPLACEMENT Care Teams Apron Operator Relationship Specialty Start Date End Date Adalid Burch MD PCP - General Internal Medicine 05/29/20 Additional Source Comments The information contained in this document represents components of the legal health record. It is not the complete legal health record.[facility]
--- OUTSIDE RECORDS SUMMARY | 2025-02-28 13:54 | XMS_ITS | Encounter Summary ---
Author Organization [facility] Address [address] [place] [address] Encounters * CPT with Medical [facility] at [facility] on 2024-12-26 Reshundsandra from [facility] requesting visit Has had symptoms since 2023 - went to [facility] [place] ED - reported that she was told she had a mass somewhere near the bladder and that it may be cancerous - not followed up on since then. Has had same symptoms since then. PMH lupus - has a specialist - last seen in November 2024. Blurred vision, headache,neck pain - symptoms of her lupus. Unable to use CPAP last night - felt like chest was blowing up so took it off. Had to use 3.5L NC oxygen instead. Only uses the oxygen at night if CPAP not working. Saw bowl topper this year but unsure if they reviewed her symptoms. Not in acute distress at this time, denies shortness of breath. B/l hand pain/numbness. B/l arm and shoulder and backpain - PRN tylenol with some effect. Rating pain as 8.5/10 after Tylenol. Blurred vision is chronic. Supposed to go to eye doctors every 6 months - unsure of last visit. Mild memory impairment. Frequent urination - dribbling after voiding. No blood in urine, denies dysuria. All symptoms seem to be chronic. Difficult triage due to patient's irritability. Not on anticoagulation. Denies kidney issues that she knows of. Last fall 02/2024. { reasonForRequest : Patient has GI problems, possible uti, and is urinating frequently. Also has blurred vision, headache, and neck pain, has lupus. , patientReports :" , denies :[], chiefComplaints : Abdominal Pain, Back Pain, Eye Complaint, High Blood Pressure, Weakness, Urinary Symptoms , pmh : COPD/Asthma, Fibromyalgia, Chronic Pain, Autoimmune Diseases (e.g., Lupus), Post-Traumatic Stress Disorder (PTSD), Anxiety Disorder, Rheumatoid Arthritis, Emphysema, Hypertension, Gastroesophageal Reflux Disease (GERD) , allergies : Penicillins, Bactrim, Desipramine, Amoxicillin, Influenza Virus Vaccine Bivalent, Influenza Virus Vaccine Trivalent, Influenza Virus Vaccine Tval,Purif-Surface Antigen, Influenza A (H5N1) Virus Vaccine Mv Splt (18Yr Up), Influenza Virus Vaccine, Live Attenuated, Influenza Virus Vaccines , otherAllergies :null, painAssessment : Level 8 out of 10 , visitOutcome : , additionalComments : Reviewed HPI. } Dispatched to the call address for the elderly female with multiple complaints of chronic illnesses. Pt states she is very frustrated. She use to have great doctors that took good care of her but nowthey have left or retired and is struggling to find comparable doctors. Her memory is not what it use to be, she advises, so she has trouble remembering things from appointment to appointment. She endorses baseline PO hydration but has not had a normal appetite in some time now. She does have a PCPappointment next Thursday. Pt denies chest pain, difficulty breathing/SoB, fevers, n/v/d but complains of trouble sleeping, shoulder pain, mild diffuse abd pain that comes and goes and feeling very lone ly. Pt has expressed on multiple visits how she is a very social person and wishes she lived in a more communal housing complex with more people her age. She can ambulate with a steady but slow gait so she has trouble walking to the park where she wishes she could just sit out and enjoy the nice weather. Pt states she needed an eye doctor appointment but when offered to call and help make one shestated she would have her aide call for her tomorrow. Pt was found opening the door, CAOx4, airway open and patent, breathing non labored, able to speak in full sentences, -JVD, -HEENT, skin PWD with good turgor, mucous membranes pink and moist, lungs CTA, abd soft non tender/distended, pupils PERRL, +CMSx4, -edema/swelling, afebrile. UA (-). Depression Pt was assessed. Pt expressed her concerns and was happy to be heard with her demeanor changing from crying to at the beginning and smiling at the end of visit. [facility] consulted. UA (-) with results posted to Pts portal and [facility] advised. Red flags discussed. ALL times are approx. IV_(FLUIDS_AND/OR_MEDICATION), MEDICATION_IM, ORAL_MEDICATION, EKG, POC_BLOODWORK, GLUCOSE, WOUND_CARE, ORTHOSTATIC_VITAL_SIGNS Written by Medical [facility] on 2024-12-26
--- OUTSIDE RECORDS SUMMARY | 2025-02-28 13:54 | XMS_ITS | Continuity of Care Document ---
Author Name [facility], Medical Address [address] [place] [address] Organization Unknown Address [address] [place] [address] Medications No known medications Problems No known problems
--- OUTSIDE RECORDS SUMMARY | 2025-02-28 13:54 | XMS_ITS | Data Portability ---
Author Organization [facility] Address [address] [place] [address] Care Team Providers Care Police Guard Name Role Phone HIM CCA OTHER Assessment Encounter Date Assessment Date Assessment LastModified by Organization Details LastModified Time 08/17/2024 08/17/2024 I provided real -time medical direction via phone for this encounter and was available for additional phone-based assistance as needed. I have reviewed and agree with the Assessment and Plan as documented by the Contracts Attorney. Patient given the opportunity to ask questions. Our service contacted for an assessment of: Recurrent abdominal pain. Patient with several recent visits from this service and to emergency department. Is in the process of trying to work through narcotic prescriptions with pharmacy and initially called the service for evaluation and then did not want to be evaluated further as thought we had limited offers for her. Discussed with medic on the scene and medic cleared without interventions. Allergies: Reviewed We discussed the diagnostic uncertainty of home visits and the risk associated with this. In this case, the patient and I felt this to be an acceptable and reasonable amount of risk given the benefit of avoiding an ED visit. We discussed the need to seek care urgently/emergentl y in the setting of any new or worsening serious symptoms, particularly fever chills lightheadedness altered mental status Not available 08/17/2024 15:00:24 08/29/2024 08/29/2024 I provided real -time medical direction via phone for this encounter and was available for additional phone-based assistance as needed. I have reviewed and agree with the Assessment and Plan as documented by the Contracts Attorney. Patient given the opportunity to ask questions. Our service contacted for an assessment of: Urinary symptoms As per above, patient with approximately of 2 weeks of back pain that started after sitting too long. Radiates to the flanks. Denies dysuria, frequency. No history of frequent urinary tract infections. Denies fever, chills, abdominal pain, back pain. Also c/o urinary retention and felling like she is not emptying her bladder. Per cutter machine tender on the scene, Vital signs are stable and the patient is afebrile. Patient is nontoxic in appearance. UA is negative Impression: Urinary retention, back pain Plan: Suspect back pain is MSK in nature. Has chronic constipation that is not new or changed. Per medic - there is no loss of function for concern of SCI/cauda equina. Will obtain a urine culture to f/u on possible urinary retention. Red flags discussed. Would benefit from a bladder scan with the PCP to investigate urinary retention. Also may benefit from a better bowel regimen. Allergies: reviewed We discussed the diagnostic uncertainty of home visits and the risk associated with this. In this case, the patient and I felt this to be an acceptable and reasonable amount of risk given the benefit of avoiding an ED visit. We discussed the need to seek care urgently/emergentl y in the setting of any new or worsening serious symptoms, particularly fever chills Not available 08/29/2024 14:29:13 11/30/2024 11/30/2024 As noted, we wer e called to see this patient regarding concerns of urinary problems and need furosemide script. Evaluation in the field was performed by my cutter machine tender colleague, as noted above, I provided real-time direction and supervision for this visit. The evaluation revealed The patient is an 78 year old female with a past medical history of. COPD/Asthma, Fibromyalgia, Chronic Pain Who originally called in for an insted Visit for a possible prescription for furosemide. When the cutter machine tender arrived, the patient was not sure why the cutter machine tender was there. She said she saw her primary care doctor earlier today and has a furosemide script waiting for her at the pharmacy. Patient denies any other concerns or symptoms right now, No chest pain, no shortness of breath. Patient recently has changed doctors which has caused her. Some increased stress. Patient has had long ongoing issues with urination problems. Pt seemed more depressed, Contracts Attorney discussed the crisis hotline Impression: Chronic urination difficulty, Depression Plan: 1) pt to take the furosemide as prescribed by her physician Primary care, consider eval and treatment for depression Disposition: stay at home We discussed the diagnostic uncertainty of home visits and the risk associated with this. In this case, the patient and I felt this to be an acceptable and reasonable amount of risk given the benefit of avoiding an ED visit. We discussed the need to seek care urgently/emergentl y in the setting of any new or worsening serious symptoms, particularly chest pain, sob, fever, abdominal pain, suicidal thoughts [email or web address] Not available 11/30/2024 15:27:29 12/26/2024 12/26/2024 I provided real -time medical direction via phone for this encounter, and was available for additional phone based assistance as needed. I have reviewed and agree with the Assessment and Plan as documented by the Contracts Attorney. We discussed the diagnostic uncertainty of home visits and the risk associated with this. In this case I felt this to be an acceptable and reasonable amount of risk given the benefit of avoiding an ED visit. The patient given the opportunity to ask questions. Patient better with verbal reassurance. Advised to keep her appointment with her PCP next week Note to care team/acute care certified nursing assistant: Patient would benefit from a more community-based setting such as senior housing. I requested CRC to reach out to the acute care certified nursing assistant to discuss with social media analyst to see if they can assist her. Advised if develops CP/severe SOB/turning blue/uncontrolled n/v/d /AMS/ syncope/ hi fever unresponsive to APAP to call 911- verbalized understanding of instruction to the medic [email or web address] Not available 12/26/2024 12:38:46 Plan of Treatment Reminders Order Date Submit Date Provider Last Modified By Organization Details Last Modified Time Details Appointments None recorded. Lab urinalysis, dipstick 2024 025 [facility], [address] [place] [address], [id number] 12:53:31 cmp, whole blood + maxwell 2024 025 [facility], [address] [place] [address], [id number] 20:27:48 urinalysis, dipstick 2024 025 [facility], [address] [place] [address], [id number] 20:27:49 hemoglobin + hematocrit, blood 2024 025 [facility], [address] [place] [address], [id number] 20:27:49 culture, urine 2024 025 [facility] (Centralized Electronic Ordering - All Locations), Patient Can Go To The Location Of Their Choice, [id number] 16:08:15 urinalysis, dipstick 2024 025 [facility], [address] [place] [address], [id number] 12:49:55 Referral None recorded. Procedures None recorded. Surgeries None recorded. Imaging None recorded. Medication Orders None recorded. Patient TargetsNo targets recorded. Patient InstructionsNo instructions recorded. Reason for Referral None Reported. Results Created Date Observation Date Name Description Value Unit Range Abnormal Flag Note LastModifiedBy Organization Detail LastModifiedTime 08/30/1908/30/2024 URINE CULTU RE, ROUTI NE urine culture, routine Final report Not Available [facility] ([facility]) [address] [place], [address], 08/30/2024 16:08:15 08/30/19 25 08/30/2024 URINE CULTU RE, ROUTI NE result 1 COMMEN T Cultu re shows less than 10,00 0 colon y formi ng units of bacte cathleen per renae liter of urine . This colon y count is not gener ally consi dered to be clini carmella signi fican t. Not Available [facility] ([facility]) [address] [facility], [place], [address], 08/30/2024 16:08:15 08/15/1908/14/2024 elect haris sandersgr am No observ ation record ed. [address], [phone] 08/14/2024 17:51:35 Result Notes None recorded. Medical Equipment None Reported. Allergies Allergen ID Allergen Name Allergen Category Reaction Reaction Severity Criticality Documentation Date Start Date Code Code System Note Provider Name and Address Organization Details Recorded Time 63131 trivalent influenza vaccine Not available Not available Not available Not available 08/17/2024 85062 9 RxNorm Not Available [facility] - production 5 09:58:34 69453 trivalent influenza vaccine Not available Not available Not available Not available 08/17/2024 95329 9 RxNorm Not Available [facility] - production 5 09:58:34 98279 trivalent influenza vaccine Not available Not available Not available Not available 08/17/2024 87659 9 RxNorm Not Available [facility] 09:58:34 04196 influenza A (H5N1) virus vaccine mv splt (18y up) Not available Not available Not available Not available 08/17/2024 Not Available [facility] 09:58:34 07960 influenza virus vaccine, live attenuate d Not available Not available Not available Not available 08/17/2024 Not Available [facility] 5 09:58:34 96126 Vaccine product containin g only influenza virus antigen (medicina l product) medicatio n Not available Not available Not available 08/17/2024 54459 98302 105 SNOMED Not Available [facility] 09:58:34 81 amoxicill in medicatio n Not available Not available Not available 06/18/2021 723 RxNorm Not Available [facility] - production 5 09:58:35 82 Product containin g penicilli n (product) medicatio n Not available Not available Not available 06/18/2021 33965 8001 SNOMED Not Available [facility] 4 03:38:28 83 Bactrim medicatio n Not available Not available Not available 06/18/2021 61963 9 RxNorm Not Available [facility] 08:56:05 84 desiprami ne medicatio n Not available Not available Not available 06/18/2021 3247 RxNorm Not Available [facility] 09:58:35 Medications Name Sig Start Date Stop Date Status Note LastModified by Organization Details LastModified Time Vitamin B-2 100 mg tablet TAKE 2 TABLETS BY MOUTH TWICE DAILY FOR 90 DAYS active Not Available Not Available No t Available cefpodoxime 200 mg tablet TAKE 1 TABLET BY MOUTH EVERY 12 HOURS FOR 5 DAYS active Not Available Not Available N ot Available sucralfate 1 gram tablet TAKE 1 TABLET BY MOUTH FOUR TIMES DAILY active Not Available Not Available Not Available ondansetron HCl 4 mg tablet TAKE 1 TABLET BY MOUTH EVERY 8 HOURS NEEDED FOR NAUSEA active Not Available Not Available No t Available gabapentin 400 mg capsule TAKE 1 CAPSULE BY MOUTH FOUR TIMES DAILY active Not Available Not Available Not Available clonazepam 1 mg tablet TAKE 1 TABLET BY MOUTH THREE TIMES DAILY NEEDED FOR ANXIETY active Not Available Not Available Not Available meclizine 12.5 mg tablet TAKE 1 TABLET BY MOUTH THREE TIMES DAILY active Not Available Not Available Not Available morphine ER 30 mg tablet,exten ded release TAKE 1 TABLET BY MOUTH EVERY 12 HOURS NEEDED FOR FIBROMYALGI A active Not Available Not Available No t Available sulfamethoxa zole 800 mg-trimethop rim 160 mg tablet TAKE 1 TABLET BY MOUTH TWICE DAILY FOR 10 DAYS active Not Available Not Available No t Available famotidine 20 mg tablet TAKE TABLET BY MOUTH TWICE DAILY active Not Available Not Available Not Available dicyclomine 20 mg tablet TAKE 1 TABLET BY MOUTH FOUR TIMES DAILY NEEDED active Not Available Not Available No t Available baclofen 10 mg tablet TAKE 1 TABLET BY MOUTH DAILY AT BEDTIME active Not Available Not Available N ot Available pantoprazole 40 mg tablet,delay ed release TAKE 1 TABLET BY MOUTH EVERY MORNING BEFORE BREAKFAST active Not Available Not Available No t Available nitroglyceri n 0.4 mg sublingual tablet DISSOLVE 1 TABLET UNDER THE TONGUE WITH ONSET OF CHEST PAIN. MAY REPEAT TWICE MORE. APART 5 MINUTES. IF PAIN PERSISTS CALL 911. active Not Available Not Available No t Available betamethason e dipropionate 0.05 % topical cream APPLY TOPICALLY TO THE AFFECTED AREA UP TO TWICE DAILY SPARINGLY. DO NOT USE THIS MEDICATION FOR MORE THAN 2 WEEKS STRAIGHT active Not Available Not Available No t Available omeprazole 20 mg capsule,anup yed release TAKE 1 CAPSULE BY MOUTH DAILY active Not Available Not Available Not Available ergocalcifer ol (vitamin D2) 1,250 mcg (50,000 unit) capsule TAKE 1 CAPSULE BY MOUTH 1 TIME A WEEK active Not Available Not Available Not Available hydroxychlor oquine 200 mg tablet TAKE 1 TABLET BY MOUTH TWICE DAILY active Not Available Not Available No t Available ibuprofen 600 mg tablet active Not Available Not Available Not Available polyethylene glycol 3350 17 gram/dose oral powder active Not Available Not Available Not Available albuterol sulfate HFA 90 mcg/actuatio n aerosol inhaler INHALE 2 PUFFS INTO THE LUNGS EVERY 4 HOURS NEEDED FOR WHEEZING active Not Available Not Available No t Available fluocinonide 0.05 % topical cream active Not Available Not Available Not Available hydroxyzine HCl 10 mg tablet TAKE 1 TABLET BY MOUTH DAILY active Not Available Not Available Not Available ondansetron 4 mg disintegrati ng tablet DISSOLVE 1 TABLET ON THE TONGUE EVERY 6 HOURS active Not Available Not Available No t Available loratadine 10 mg tablet TAKE 1 TABLET BY MOUTH EVERY DAY active Not Available Not Available No t Available oxycodone 5 mg tablet TAKE 1 TABLET BY MOUTH EVERY 4 HOURS NEEDED FOR PAIN. MAX 5 PER DAY active Not Available Not Available No t Available azithromycin 500 mg tablet Take 1 tablet every day by oral route for 4 days. 2021 active Not Available Not Available Not Avai labchandana memantine 5 mg tablet TAKE 1 TABLET BY MOUTH TWICE DAILY active Not Available Not Available No t Available duloxetine 60 mg capsule,anup yed release TAKE 1 CAPSULE BY MOUTH DAILY active Not Available Not Available Not Available diclofenac 1 % topical gel APPLY 2 GRAMS EXTERNALLY TO THE AFFECTED AREA TWICE DAILY NEEDED active Not Available Not Available No t Available Anoro Ellipta 62.5 mcg-25 mcg/actuatio n powder for inhalation INHALE 1 PUFF BY MOUTH EVERY DAY active Not Available Not Available No t Available Trelegy Ellipta 100 mcg-62.5 mcg-25 mcg powder for inhalation INHALE 1 PUFF INTO THE LUNGS DAILY active Not Available Not Available No t Available [facility]NOW COVID-19 Ag Self Test kit TEST DIRECTED TODAY active Not Available Not Available No t Available Vitals Date Recorded Oxygen saturation Oxygen saturation in Arterial blood by Pulse oximetry Body temperature Heart rate Respiratory rate Systolic And Diastolic Provider Name and Address Organization Details Last Updated DateTime 5 95 % 95 % 98.5 [degF] 65 /min 18 /min 117/72 mm[Hg] Not Available [facility] - production 5 14:44:52 Date Recorded Body temperature Oxygen saturation Oxygen saturation in Arterial blood by Pulse oximetry Respiratory rate Heart rate Systolic And Diastolic Provider Name and Address Organization Details Last Updated DateTime 5 98 [degF] 97 % 97 % 18 /min 64 /min 132/64 mm[Hg] Not Available [facility] - production 5 11:19:54 Date Recorded Oxygen saturation Oxygen saturation in Arterial blood by Pulse oximetry Body temperature Respiratory rate Heart rate Systolic And Diastolic Provider Name and Address Organization Details Last Updated DateTime 5 96 % 96 % 98.4 [degF] 18 /min 63 /min 123/74 mm[Hg] Not Available [facility] - production 5 18:09:55 Date Recorded Oxygen saturation Oxygen saturation in Arterial blood by Pulse oximetry Respiratory rate Body temperature Heart rate Systolic And Diastolic Provider Name and Address Organization Details Last Updated DateTime 5 96 % 96 % 18 /min 97.9 [degF] 91 /min 144/88 mm[Hg] Not Available [facility] - production 5 14:23:33 Date Recorded Respiratory rate Heart rate Body temperature Oxygen saturation Oxygen saturation in Arterial blood by Pulse oximetry Systolic And Diastolic Provider Name and Address Organization Details Last Updated DateTime 5 18 /min 59 /min 98.5 [degF] 98 % 98 % 138/60 mm[Hg] Not Available [facility] - production 5 11:20:20 Social History None recorded. Functional Status None recorded. Mental Status None recorded. Family History Nothing Reported. Medical History No medical history recorded. Gynecological HistoryNo gynecological history recorded. Obstetrics History GPAL:G 0 P 0 0 0 0 Past Encounters Encounter ID Performer Location Encounter Start Date Encounter Closed Date Diagnosis/Indication Diagnosis SNOMED-CT Code Diagnosis ICD10 Code Diagnosis IMO Codes Diagnosis Note [id number] Mary Hancock MD Main - [address] [phone] 06/18/2021 10:31:45 12/19/2021 15:17:58 Abdominal pain 78763024 R10.9 possible diverticul itis [id number] Arnaud Mcdaniel MD Main - [address] [address] 08/23/2021 15:43:04 12/26/2021 15:05:04 Generalized acute body pains 566295653 R52 Patient with lupus presents with intermitte nt fevers and diffuse body pain. Differenti al diagnosis includes viral illness vs lupus flare. Rapid COVID test was negative. Point of care CMP obtained primarily to assses renal function and possible lupus nephritis; creatinine and BUN were normal on this. Therefore I felt that likelihood of acute lupus crisis was low and patient should contact rheumatolo gist for follow-up, and continue plaquenil. [id number] Horacio Rivers MD Main - [facility] [address] [place] [id number] 10/28/2021 14:40:13 01/13/2022 12:04:47 Exposure to SARS-CoV-2 591056117 Z20.822 Negative rapid test [id number] Marc Smith MD Main - [facility] [address] [place], [place] [phone] 11/04/2021 18:02:03 01/09/2022 18:35:41 Acute exacerbation of chronic obstructive pulmonary disease 721528453 J44.1 [id number] Mary Hancock MD Main - [facility] [address] [place], [place] [phone] 12/05/2021 14:53:25 01/01/2022 11:25:40 Chest pain 57112686 R07.9 pat adamantly refusing an EKG despite c/o of recurrent acute and chronic CP- feels she has had enough EKG- only wants covid test Chronic ob structive pulmonary disease 49791163 J44.9 without evidence of acute exacerbati on or infection. NO respirator y distress- lungs CTA- no cough the 40+ min MI was with her/ no fever- no sinus congestion noted- antibiotic s not indicated at this time. Covid test done and negative- Informed [facility] does not have any PCRs. Pat then concerned her CPAP is not working- appeared to be functionin g normally for [facility]- advised f/u with her pulmonolog ist- pat. reports they are expected to call her this pm [id number] Lolly Spear MD Main - [facility] [address] [place] [id number] 05/23/2022 14:08:15 05/26/2022 12:26:03 Weakness present [id number] M62.81 [id number] Olga Shea MD Main - [facility] [address] [place] [id number] 03/02/2023 16:18:59 08/19/2024 13:10:39 Fall W19.XXXA [id number] Olga Shea MD Main - [facility] [address] [place] [id number] 11/03/2023 15:13:30 11/03/2023 18:25:08 SARS-CoV-2 antibody not detected 072814865 Z11.52 [id number] Shravan Velázquez MD Main - [facility] [address] [place], [place] [phone] 03/23/2024 15:15:52 03/24/2024 21:51:25 Malaise and fatigue 757998102 R53.81 [id number] RADHA VAUGHAN MD Main - [facility] [address] [place] [id number] 03/25/2024 10:46:14 03/27/2024 21:26:47 Acute kidney injury 59347426 N17.9 Acute constipation 03102 9006 K59.00 Abdominal pain 89539404 R10.9 [id number] Dedrick Rosales MD Main - [facility] [address] [place], [place] [id number] 08/14/2024 17:37:51 08/15/2024 13:26:06 Chest pain 77811709 R07.9 [id number] Backache 590701774 M54.9 [id number] Olga Shea MD Main - [facility] [address] [place], [place] [id number] 08/17/2024 14:44:49 08/17/2024 19:19:07 Generalized abdominal pain 651994360 R10.84 [id number] Olga Shea MD Main - [facility] [address] [place], [place] [phone] 08/29/2024 11:19:52 08/29/2024 16:02:09 Urinary symptoms 211341422 R39.9 39078 Dysuria 15315109 R30.0 [id number] Horacio Rivers MD Main - [facility] [address] [place] [id number] 09/16/2024 18:05:38 09/16/2024 20:03:47 Chronic abdominal pain 678577341 R10.9 G89.29 [id number] Chronic abdominal pain; known ventral hernia. Recently in ED and had CT scan showing gastritis. Had constipati on and then some diarrhea. Not eating much today. Normal CMP (slightly low Na at 132) and normal H/H. Has nausea but can take Zofran orally and does not want IV/IM Zofran. Mild distention on exam though no focal tenderness . Patient reports pain minimal around LUQ. No pain on RLQ or RUQ. Continue current pain management and current treatment for distention . Discussed red flag signs for which to seek higher level of care. [id number] RADHA VAUGHAN MD [facility] ED Medical [address] [phone] 11/30/2024 14:23:29 11/30/2024 15:58:26 Disorder of urinary system 154656938 R39.89 [id number] Mary Hancock MD [facility] ED Medical [address] [phone] 12/26/2024 11:20:16 12/26/2024 16:56:42 Increased frequency of urination 660421683 R35.0 53444 Urinalysis clear yellow not indicative of infection patient informed. Health Concerns Section Related Observation LastModified by Organization Detai ls LastModified Time None Recorded Concern Status LastModified by Organization Details LastModified Time None Recorded Advance Directives Directive None Recorded Payers Insurance Date Sequence Insurance Name Policy Number Policy Garcia Covered Member ID Garcia Member ID Guarantor Name 03/23/[address] [facility] - DOS PRIOR TO 2022 - DUAL ELIGIBLE (MEDICARE REPLACEMENT/ADV ANTAGE - HMO) Xiomy Mccarty [id number] Xiomy Mccarty 12/26/[address] [facility] - DOS ON OR AFTER 2022 - DUAL ELIGIBLE - CARE HOME OPTIONS AND ONE CARE (MEDICARE REPLACEMENT/ADV ANTAGE - HMO) Xiomy Mccarty [id number] Xiomy Mccarty Notes Date Note Type Note Provider Name and Address Organization Details Recorded Time 08/17/2024 text/html HPI: 78 y/o female patient called to PCP with reports of having increased abdominal pain, nausea, sweats, chills since last Thursday. Patient denies v/d and fever at this time. Patient reports being seen by [facility] on Thursday and advised to go to ED due to abnormal EKG. Patient states presenting to ED on Thursday due to pain and being advised labs all WNL with note on CT for gastritis. Patient is out of antiemetic and would benefit from evaluation. ...................... ...................... ...................... ...................... ...................... ...................... ......... [facility] Nurse Triage Notes (Shanthi Ortega): Reason For Request: abd pain Chief Complaints: Abdominal Pain PMH: COPD/Asthma, Fibromyalgia, Chronic Pain PMH Reviewed at 08/17/2024:58 Allergies Reviewed at 08/17/2024:58 ...................... ...................... ...................... ...................... ...................... ...................... ......... Contracts Attorney Note From Karime Marin: Sent to a call for a pt complaining of pain. SC8 arrives on scene, pt is alert and oriented, airway is patent. Pt has history of fibromyalgia, and GI problems. Pt states she was seen by [facility] on Thursday, and was advised to go to ED due to slight abnormality on ECG. Pt states she went to ED on Thursday for an eval, then went home. D/C paperwork states cardiac issue ruled out. Pt was treated for pain and diagnosis was chronic spinal pain flare and fibromyalgia. Pt has chronic intermittent cp, nausea, abd pain, back/body pain per pt. Pt states she has been taking Tylenol, Oxycodone, and Zofran. Pt states she has had increased pain due to stress and pt is out of Morphine. Pt states her pharmacy is out of Morphine and pt doesn't want to go to another pharmacy to have prescription filled. Pt states this [facility] visit is pointless, but agrees to have her vitals checked. BP:117/72, P:65, RR:18, SpO2:95% RA, T:98.5; Head: unremarkable; Lung sounds: clear bilaterally; Abdomen: soft, non-tender, no distention; Back: unremarkable; Extremities: unremarkable; Skin: pink, warm, dry; [facility] [place] and has no orders. Red flags discussed. Pt has no further questions. ...................... ...................... ...................... ...................... ...................... ...................... ......... [facility] Consulted: Olga Shea ...................... ...................... ...................... ...................... ...................... ...................... ......... Disposition: Evan Shea MD [address] [place] [address],[address], [place], [phone], [employer] 08/17/2024 16:48:28 08/29/2024 text/html CRC Nurse Triage Notes (Shanthi Ortega): Reason For Request: Patient says she is having Kidney pains. Patient Reports: Painful urination; Frequent and increased urination with flank pain; Painful urination with or without fever; Inability to fully empty bladderDenies: Unable to void greater than 5 hours Erection that will not go away after 2 hours Fall or trauma that results in urinary incontinence in the setting of pain Fall or injury that results in incontinence in the absence of pain Lower back pain either unilateral or bilateral, unable to void, painful urination -hematuria Chief Complaints: Urinary SymptomsPMH: COPD/Asthma, Fibromyalgia, Chronic PainPMH Reviewed at 08/29/2024:58Allergies Reviewed at 08/29/2024:58Comments: 78 y.o female complains of Urinary Symptoms Pt called last night for pain, in spine and left flank. She was laying on the heating pad and it went away last night. She has urgency, frequency, but decreased stream . She was recently put on Lyrica, so she feels it might be affecting her kidneys.She stated she needs surgery for internal bleeding but she is unsureI provided information on the mobile health provider response time and advised the patient and/or caregiver to monitor reported signs and symptoms. I discussed the warning signs of when to seek emergency care. Contracts Attorney Organization Information for Krystian Gar Legal Name: [employer]. Address: [address] [place] [address], [employer]: Scott Cuadra MD CLIA No.: [id number] Contracts Attorney POC Test Results from Krystian Gar Urine Dipstick (11:27:11) Urine leukocytes: neg AYAKA Urine nitrites: neg NIT Urine urobilinogen: 0.2 URO Urine protein: neg PRO Urine pH: 5.0 pH Urine blood: neg BLO Urine specific gravity: 1.010 SG Urine ketones: neg KET Urine bilirubin: neg HARRIETT Urine glucose: neg GLU ...................... ...................... ...................... ...................... ...................... ...................... ......... Contracts Attorney Note From Krystian Gar: Pt seen for primary complaint of back pain. Pt powers x 4 and ambulatory under her own power with no assistance device. Pt reports pain in her mid lower back radiating to her L and R sides. Pt denies any fall, injury, trauma that occurred to cause the pain. Pt reports feeling that she needs to force out urine but denies all other urinary symptoms. Pt reports last BM to be 2 days ago and reports that frequency to be normal for her. Pt reports hx of fibromyalgia and normally takes morphine for pain, Pt states her pharmacy has been out of morphine and she has been medicating with oxycodone with minimal relief in pain. Pt reports the pain initially began on 08/09 after sitting for an extended period of time due to an appointment a distance away. Pt reports the pain improved some then worsened over the last week. Pt denies all other complaints. Physical exam of Pt unremarkable. Palpitation and physical assessment of areas of complaint show no abnormal findings, no change in upon palpation. [facility] contacted and advised of Pt complaint, findings & presentation. [facility] requests urine dipstick and culture for lab send out. Urinalysis completed with results uploaded to [facility]. [facility] contacted again who reports Pt should monitor for next few days, follow up with PCP and seek emergency medical services should her condition worsen. Pt advised of [facility] tx plan. Pt understanding and agreeable to it. Pt has no further questions or concerns. Call closed. [facility] Lab Orders: urinalysis, dipstick: Performed ...................... ...................... ...................... ...................... ...................... ...................... ......... [facility] Consulted: Olga Shea ...................... ...................... ...................... ...................... ...................... ...................... ......... Disposition: Evan Olga Shea MD [address] [place] [address],[address], [place], [phone], [employer] 08/29/2024 14:36:05 09/16/2024 text/html ROS as noted in the [facility] CRC Nurse Triage Notes (Jae Gomez): Reason For Request: abdominal pain/headache/joint pain Patient Reports: Sharp focal or diffuse abdominal pain ; Nausea and vomiting greater than 2 hours with abdominal pain; Tearing pain that radiates to back; Vague abdominal pain greater than 24 hours; Diarrhea no blood in stool; Nausea with or without vomiting; Inability to tolerate foods, fluids or daily medicationsDenies: Vomiting blood/coffee ground material Bloating, jaundice new onset with pain Food Impaction Constipation Chief Complaints: Abdominal Pain, Extremity PainPMH: COPD/Asthma, Fibromyalgia, Chronic PainPMH Reviewed at 09/16/2024 - 15:29Allergies Reviewed at 09/16/2024 - 15:29Comments: 78 y.o female complains of Abdominal Pain, Extremity Pain Pt reports feeling unwell with joint pain, headache and abdominal pain - Reports increased activity on Thursday and since then increased abdominal pain and extremity pain. Decreased PO intake - Last BM was Thursday - Loose stools. Bloating/Groin and abdominal swelling. Nausea reported. Subjective fever - Baseline SOB. Pain is 7/10. Reports taking Morphine for pain Denies chest pain Wellness check requested - ER treatment declined I provided information on the mobile health provider response time and advised the patient and/or caregiver to monitor reported signs and symptoms. I discussed the warning signs of when to seek emergency care. ...................... ...................... ...................... ...................... ...................... ...................... ......... Contracts Attorney Note From Kashif Sadler: SC12 dispatched to the address listed above for a female green party with abdominal pain. Arrival on scene, patient found opening door for [facility] ambulating without assistance to seated position, alert and oriented x4, patent airway, breathing non labored speaking in complete sentences, skin WPD in no immediate distress. +/= Chest rise. -SOB, -CP, +Nausea/Diarrhea, -Vomiting, -Trauma, -Fever. GCS 15. Abdomen soft, distended, and tender to LUQ upon palpation. Left CVA tenderness noted. Patient reports that she was lifting a heavy object to throw into dumpster about 3 days ago when she felt a tearing pain across her abdomen and into her back, no other trauma was reported. Patient reports that she then drank prune juice > patient reports diarrhea > took anti-diarrheal > has not had bowel movement since Thursday. Patient reports that she is no longer having a tearing pain in her abdomen, only LUQ pain with left flank pain. Additionally patient reports history gastrointestinal issues that she has not had surgery for along with chronic headaches after a fall several months ago. Patient reports that she already took Zofran earlier today along with her prescribed morphine for chronic pain. Patient reports reduced food intake but has been drinking plenty of water and has been medication compliant. Patient denies any fevers or chills. Patient vital signs obtained as noted. [facility] consulted, provided orders for BMP and UA. Blood draw completed with 23-gauge butterfly in left AC, removed and bandaged at end of blood draw. ISTAT BMP performed as noted, uploaded to [employer]. Patient provided urine sample via clean catch, Culture and UA obtained as noted. [facility] consulted again and spoke with patient regarding results, [facility] advised no further tests or treatments. Red flags discussed with patient, advised to call 911 if she experiences any life-threatening symptoms. SC12 Clear. [facility] Lab Orders: cmp, whole blood + maxwell: Performed urinalysis, dipstick: Performed hemoglobin + hematocrit, blood: Performed ...................... ...................... ...................... ...................... ...................... ...................... ......... [facility] Consulted: Yonathan Rivers ...................... ...................... ...................... ...................... ...................... ...................... ......... Disposition: Fulfilled Horacio Rivers MD [address] [facility],[address], [place], [phone], [facility] - [employer] [facility] 09/16/2024 19:54:47 11/30/2024 text/html ROS as noted in the HPI HPI: Member requesting Rx for Lasix because she isn't voiding. Member was seen in ED in April when Lasix was discontinued due to urinating too much. They replaced it with oxybutin. She says the oxybutin made her STOP urinating all together and now she only goes drops continuously during the day but more at night to where she has to use a pad. It is difficult for her to urinate and not voiding completely when she does, having to push in order to get a small amount out. It is not Painful but reports bloating, urgency and pressure of suprapubic area . Member is drinking 'enough' water daily. Agrees to InstED visit to evaluate urinary retention - and cath as necessary. Member is awarePatient used to have a Urologist through [facility] however does not anymore (self - reported last visit in 2023) which may be discussed at upcoming visit 01/05 with [facility]. She states she is taking 3 year Furosemide she found the past few days and its not working to help her urinate which CRN strongly advised against. ...................... ...................... ...................... ...................... ...................... ...................... ......... [facility] Nurse Triage Notes (Shanthi Ortega): Chief Complaints: Urinary Symptoms, Urinary Catheter/Nephrostomy Tube Problems PMH: COPD/Asthma, Fibromyalgia, Chronic Pain PMH Reviewed at 11/30/2024 12:54 Allergies Reviewed at 11/30/2024 - 12:54 Comments: HPI reviewed ...................... ...................... ...................... ...................... ...................... ...................... ......... Contracts Attorney Note From Velasquez Arellano: Dispatched to the call address for the female with requesting a script for Lasix. Pt advises she is not sure why [facility] sent [facility] out because she saw her doctor earlier today and they placed an order for her script to the [facility]. She advises she is in no acute distress and denies chest pain, diff breathing/sob, n/v/d, UTI symptoms and only complains of difficulty voiding x11 months. She has another doctors appt next week. Pt did endorse feeling depressed and and expressed that she is a social person and her current living situations are not conducive to healthy living for her. Pt was found opening door, CAOx4, airway open and patent, breathing non labored, able to speak in full sentences, -JVD, -HEENT, skin PWD with good turgor, mucous membranes pink and moist, +CMSx4, pupils PERRL, abd soft non tender/distended, -edema/swelling, afebrile. Pt noted to sob multiple times and state her kids do not visit anymore and she is very alone. Depression Pt was assessed. Pt was advised of crisis hotline number and encouraged to call it if she needed. [facility] consulted. Red flags discussed. ALL times are approx. ...................... ...................... ...................... ...................... ...................... ...................... ......... [facility] Consulted: Radha Vaughan ...................... ...................... ...................... ...................... ...................... ...................... ......... Disposition: Fulfilled RADHA VAUGHAN MD [address] [facility],[address], [place], [phone], [employer] 11/30/2024 15:27:56 12/26/2024 text/html ROS as noted in the HPI HPI: Dev[facility] from [facility] requesting visitHas had symptoms since 2023 - went to [facility] ED - reported that she was told she had a mass somewhere near the bladder and that it may be cancerous - not followed up on since then. Has had same symptoms since then. PMH lupus - has a specialist - last seen in November 2024. Blurred vision, headache, neck pain - symptoms of her lupus. Unable to use CPAP last night - felt like chest was blowing up so took it off. Had to use 3.5L NC oxygen instead. Only uses the oxygen at night if CPAP not working. Saw payroll administrative assistant this year but unsure if they reviewed her symptoms. Not in acute distress at this time, denies shortness of breath. B/l hand pain/numbness. B/l arm and shoulder and back pain - PRN tylenol with some effect. Rating [...] that she knows of. Last fall 02/2024. ...................... ...................... ...................... ...................... ...................... ...................... ......... [facility] Nurse Triage Notes (Yaritza Olea): Reason For Request: Patient has GI problems, possible uti, and is urinating frequently. Also has blurred vision, headache, and neck pain, has lupus. Chief Complaints: Abdominal Pain, Back Pain, Eye Complaint, High Blood Pressure, Weakness, Urinary Symptoms PMH: COPD/Asthma, Fibromyalgia, Chronic Pain, Autoimmune Diseases (e.g., Lupus), Post-Traumatic Stress Disorder (PTSD), Anxiety Disorder, Rheumatoid Arthritis, Emphysema, Hypertension, Gastroesophageal Reflux Disease (GERD) PMH Reviewed at 12/26/2024 Allergies Reviewed at 12/26/2024 Pain Assessment: Level 8 out of 10 Comments: Reviewed HPI. Contracts Attorney Organization Information for Velasquez Arellano Business Legal Name: [employer] Address: [address] [place] [address], [employer]: Scott Cuadra MD IA No.: [id number] Contracts Attorney POC Test Results from Velasquez Arellano Urine Dipstick (11:41:05) Urine leukocytes: -AYAKA Urine nitrites: -NIT Urine urobilinogen: -URO Urine protein: -PRO Urine pH: 6pH Urine blood: -BLO Urine specific gravity: 1.010SG Urine ketones: 5+KET Urine bilirubin: -HARRIETT Urine glucose: -GLU ...................... ...................... ...................... ...................... ...................... ...................... ......... Contracts Attorney Note From Velasquez Arellano: Dispatched to the call address for the elderly female with multiple complaints of chronic illnesses. Pt states she is very frustrated. She use to have great doctors that took good care of her but now they have left or retired and is struggling to find comparable doctors. Her memory is not what it use to be, she advises, so she has trouble remembering things from appointment to appointment. She endorses baseline PO hydration but has not had a normal appetite in some time now. She does have a PCP appointment next Thursday. Pt denies chest pain, difficulty breathing/SoB, fevers, n/v/d but complains of trouble sleeping, shoulder pain, mild diffuse abd pain that comes and goes and feeling very lonely. Pt has expressed on multiple visits how [...] offered to call and help make one she stated she would have her aide call for [...] and smiling at the end of visit. C consulted. UA (-) with results posted to Pts portal and C advised. Red flags discussed. ALL times are approx. [facility] Lab Orders: urinalysis, dipstick: Performed ...................... ...................... ...................... ...................... ...................... ...................... ......... [facility] Consulted: Mary Hancock ...................... ...................... ...................... ...................... ...................... ...................... ......... Disposition: Fulfilled Mary Hancock MD [address] [facility],[address] [facility], [place], [address], [employer] 12/26/2024 12:39:09 OBGyn Episode No OBEpisode recorded.
--- OUTSIDE RECORDS SUMMARY | 2025-02-28 13:54 | XMS_ITS | Encounter Summary ---
Author Organization [facility] Address [address] [place] [address] Care Team Providers Care Renal Dialysis Technician Name Role Phone Kristi Hays Primary Care Provider [phone] Reason for Visit * Reason Comments Med Refill Encounter Details Date Type Department Care Team (Late st Contact Info) Description 02/15/2025 Refill [facility] [address] [place] [address] Adding Machine Mechanic: Arnaud Ahn MD [address] [place] [address] Social History Tobacco Use Types Packs/Day Years [...] encounter Miscellaneous Notes * Telephone Encounter - Tiffanie Webb LPN - 02/20/2025 3:42 PM EST Spoke with [facility] last week and patient doesn't need a refil on the Clonazepam it was sent on 02/06/2025 documented in this encounter Plan of Treatment Upcoming Encounters Date Type Department Care Team (Late st Contact Info) Description 09/06/2025 4:00 PM EDT Follow-Up [facility] [address] [place] [address] Adding Machine Mechanic: Arnaud Ahn MD [address] [place] [id number] documented as of this encounter Visit Diagnoses Not on filedocumented in this encounter Care Teams Renal Dialysis Technician Relationship Specialty Start Date End Date Kristi Hays [address] [place] [address] PCP - General 02/21/25 documented as of this encounter
--- OUTSIDE RECORDS SUMMARY | 2025-02-28 13:54 | XMS_ITS | Clinical Summary ---
Author Organization [facility] [address] [place] [address] [place] [phone] Phone Care Team Providers Care Vehicle Calibration Engineer Name Role Phone Physician, No Pcp Primary [...] ON THE TONGUE EVERY 6 HOURS 03/03/20 20 Active oxyCODONE (ROXICODONE) 5 mg immediate release [...] 06/05/2021 Chronic pain syndrome 05/29/2020 Aortic atherosclerosis ([facility] V24) 01/05/2020 Assessment & Plan (07/18/2024 3:49 PM EDT): Continue aspirin, statin therapy. Orders: ECG 12 lead Kyphosis of thoracic region 01/05/2020 Overview (01/22/2024): Moderate Osteoarthritis 01/05/2020 Overview (01/22/2024): Cervical, Thoracic, & Lumbar Spine Rheumatoid arthritis ([facility] V24, [facility] V28) 12/22/2018 SLE (systemic lupus erythema tosus) ([facility] V24, [facility] V28) 12/22/2018 SEFERINO positive 04/27/2017 Anxiety 12/18/2015 Depression 07/28/2012 Pulmonary nodules 10/08/2011 Overview (01/22/2024): 01/2019 Bilateral Stable, yearly low dose CT Migraine 07/02/2011 Overview (01/22/2024): [facility] Neurology Dr. Bro - 09/29/11 - increase gabapentin to 600 mg b.i.d.; EEG to rule out seizure secondary to confusion; repeat MRI in 6 months Osteoporosis 11/27/2009 COPD (chronic obstructive pu lmonary disease) ([facility] V24, [facility] V28) 12/22/2008 Mixed hyperlipidemia 09/12/2008 Vitamin D deficiency 09/12/2008 Diverticulosis 02/08/2008 Overview (01/22/2024): Incidental finding a colonoscopy 2001. 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 9) with comorbidity ([facility] V24, [facility] V28) 04/09/2005 Encounters Date Type Department Care Team Description 02/27/2025 Telephone [facility] [address] [facility] [address] [place] [address] Juan Mota MD 02/10/2025 Telephone [facility] [address] [place] [address] Maryanne Barton NP from Last 3 Months Immunizations Immunization Administration Dates Next Due H1N1 Inj Preservative [...] breast bx-benign UPPER GASTROINTESTINAL ENDOSCOPY 02/04/2010 PROCEDURE: [place] UPPER GI ENDOSCOPY PERFORMED; COMMENT: fundoplication intact UPPER GASTROINTESTINAL ENDOSCOPY 04/01/2001 PROCEDURE: [place] UPPER GI ENDOSCOPY PERFORMED; COMMENT: normal APPENDECTOMY PROCEDURE: HISTORICAL APPENDECTOMY CARDIAC CATHETERIZATION 1996 PROCEDURE: HISTORICAL CARDIAC CATH; COMMENT: Negative coronary angiography OTHER SURGICAL HISTORY 03/12/2010 PROCEDURE: RADIOLOGIC EXAM COLON SINGLE CONTRAST STUDY; COMMENT: diverticulosis; no polyps Medical History Medical History Date Comments Diverticulosis 02/08/2008 DX:Diverticulosi s; COMMENT: Incidental finding a colonoscopy 2001. 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 Bro - 09/29/11 - increase gabapentin to 600 mg b.i.d.; EEG to rule out seizure secondary to confusion; repeat MRI in 6 months SLE (systemic lupus erythema tosus) ([facility] V24, [facility] V28) 12/22/2018 DX:SLE (systemic lupus eryt hematosus) ([facility]) Osteoarthritis 01/05/2020 DX:Osteoarthriti s; COMMENT: Cervical, Thoracic, & Lumbar Spine Vitamin D deficiency 09/12/2008 DX:Vitamin D deficiency Rheumatoid arthritis ([facility] V24, [facility] V28) 12/22/2018 DX:Rheumatoid arthritis ([facility] ) Osteoporosis 11/27/2009 DX:Osteoporosis Mixed hyperlipidemia 09/12/2008 DX:Mixed hy perlipidemia History of DVT (deep vein thrombosis) 03/20/2006 DX:History of DVT (deep vein thrombosis) Fibromyalgia 04/09/2005 DX:Fibromyalgia; COMMENT: On Cymblata; side effects on Lyrica IMO update Ds DNA antibody positive 04/27/2017 DX:Ds D NA antibody positive Depression 07/28/2012 DX:Depression Anxiety 12/18/2015 DX:Anxiety SEFERINO positive 04/27/2017 DX:SEFERINO positive Severe obesity (BMI 35.0-39. 9) with comorbidity ([facility] V24, [facility] V28) 04/09/2005 DX:Severe obesity (BMI 35.0- 39.9) with comorbidity ([facility]) Aortic atherosclerosis ([facility] V24) 01/05/2020 DX:Aortic atherosclerosis (HCC) Kyphosis of thoracic region 01/05/2020 DX:K yphosis [...] Care Team (Late st Contact Info) Description 04/10/2025 1:10 PM EST Office Visit [facility] [address] [facility] [address] [place] [address] Maryanne Barton NP [address] [place] [address] [place] [address] Health Maintenance Due Date Last Done Comments Zoster Vaccines (1 of 2) 12/30/1993 RSV Immunization Adult Patients (1 - 1-dose 75+ series) 12/30/2018 Falls Risk Assessment 03/29/2022 Medicare Annual Wellness Visit 03/29/2022 Social Influencers of Health Screening 03/29/2022 Depression Screening 04/20/2024 COVID-19 Vaccine ( season) 2024 Influenza Vaccine (#1) 2024 6, 12/27/2010, 01/07/2010, [...] probability of hip fracture of 60.9%. Code 51299 -------- FINAL REPORT -------- Dictated By: Rufino Brizuela Dictated Date: 08/09/2024 08:04 ET Assigned Physician: Rufino Brizuela Reviewed and Electronically Signed By: Rufino Brizuela Signed Date: 08/09/2024 08:06 ET Workstation ID: [id number] Transcribed By: Self Edit Transcribed Date: 08/09/2024 [...] density of the femurs bilaterally is 0.822 gm/[id number] is 82% of that of young normals [...] probability of hip fracture of 60.9%. Code 27795 -------- FINAL REPORT -------- Dictated By: Rufino Brizuela Dictated Date: 08/09/2024 08:04 ET Assigned Physician: Rufino Brizuela Reviewed and Electronically Signed By: Rufino Brizuela Signed Date: 08/09/2024 08:06 ET Workstation ID: [id number] Transcribed By: Self Edit Transcribed Date: 08/09/2024 [...] Signed Date: 05/26/2024 15:38 ET Workstation ID: [id number] Transcribed By: Self Edit Transcribed Date: 05/26/2024 15:33 ET Narrative 05/26/2024 3:38 PM EST INDICATION: Current smoker with 64 pack-year smoking history FINDINGS: Low-dose CT scan of the chest obtained as a lung cancer screening study. Scanner: [employer] 128 slice VCT Dose reduction technique: ASIR [...] obtained as a lung cancerscreening study. Scanner: [employer] 128 slice VCT Dose reduction technique: ASIR [...] Dictated Date: 05/26/2024 15:33 ET Assigned Physician: aSndy Martin Reviewed and Electronically Signed By: Sandy Martin Signed Date: 05/26/2024 15:38 ET Workstation ID: [id number] Transcribed By: Self Edit Transcribed Date: 05/26/2024 15:33 ET Odin Seals MD IMG CT PROCEDURES Final Result * (ABNORMAL) Lipid [...] Most Recently Relevant to Health Maintenance Insurance [facility] MEDICARE Member Subscriber Plan / Payer (Ef fective 2016-Present) Name:Xiomy Mccarty Relation to Subscriber:Self Name:Xiomy Mccarty Payer ID:[id number] Group ID:[id number] Type:Not on file Address: [address] [facility] [place] [id number] Care Teams Vehicle Calibration Engineer Relationship Specialty Start Date End Date Physician, No Pcp PCP - General 11/04/24
--- OUTSIDE RECORDS SUMMARY | 2025-02-28 13:54 | XMS_ITS | Clinical Summary ---
Author Organization [facility] Address [address] [place] [address] Care Team Providers Care Lna Name Role Phone Kristi Hays Primary Care Provider [phone] Allergies Active Allergy Reactions Criticality Noted Date Comments Amoxicillin-Pot Clavulanate Apnea High 06/08/19 21 Ciprofloxacin Hcl Anaphylaxis High 06/08/2020 Desipramine Anaphylaxis High 06/08/2020 Flu Vac 2011 (18-64yrs)(Pf) Unknown 06/08/19 21 Sulfamethoxazole-Trimethoprim Anaphylaxis High 06/08 Tetanus Immune Globulin Anaphylaxis High 06/08/2020 Medications albuterol (PROAIR HFA,VENTOLIN HFA) 90 mcg inhaler Inhale 1-2 puffs by mouth every 6 hours. Active ipratropium-a lbuteroL (DUO-NEB) 0.5-2.5 mg/3 mL nebulizer solution Active nitroglycerin (NITROSTAT) 0.[address] 0.4 mg under the tongue every 5 minutes as needed. Active ondansetron (ZOFRAN) 4 mg tablet Take 4 mg by mouth every 8 hours as needed for nausea or vomiting. Active loratadine (CLARITIN) 10 mg tablet Take 10 mg by mouth daily. Active hyoscyamine (ANASPAZ,LEVS IN) 0.125 mg tablet Take 0.125 mg by [...] if no or minimal response. 1 each 07/10/19 Active Trelegy Ellipta 100-62.5-25 mcg blister with device Inhale 1 puff by mouth once a day. 07/10/19 Active aspirin 81 mg EC tablet Take 1 tablet by mouth once a day. Active baclofen (LIORESAL) 10 mg tablet Take 1 tablet (10 mg total) by mouth 2 times a day as needed for muscle spasms. 60 tablet 2 12/27/19 Active oxyCODONE IR (ROXICODONE) 10 mg tablet Take 1 tablet (10 mg total) by mouth every 8 hours as needed for breakthrough pain. Max Daily Amount: 30 mg 90 tablet 02/02/20 25 Active naloxone HCl (NARCAN) 4 mg/actuation nasal spray Instill the contents of 1 unit intranasally for suspected opioid overdose. Repeat after 3 minutes if no or minimal response. 1 each 02/02/20 Active clonazePAM (KlonoPIN) 1 mg tablet Take 1 tablet (1 mg total) by mouth 3 times a day as needed for anxiety. 90 tablet 02/07/20 Active morphine ER (MS CONTIN) 15 mg tabletIndicat ions:Fibromya lgia Take 1 tablet (15 mg total) by mouth 2 times a day. 60 tablet 02/18/20 25 Active atorvastatin (LIPITOR) 20 mg tablet Take 20 mg by mouth daily. 10/06/19 25 Active hydroxychloro quine (PLAQUENIL) 200 mg tabletIndicat ions:Polyarth ralgia Take 2 tablets (400 mg total) by mouth once a day. 180 tablet 3 02/22/[address] (CYMBALTA) 60 mg capsuleIndica tions:Fibromy algia Take 1 capsule (60 mg total) by mouth once a day. 90 capsule 3 02/22/20 25 Active pregabalin (LYRICA) 75 mg capsuleIndica tions:Fibromy algia Take 1 capsule (75 mg total) by mouth nightly. 30 capsule 2 08/18/19 25 025 Discontinued(A llergic Response/Adver se Reaction) methylPREDNIS olone (MEDROL DOSEPACK) 4 mg tablet follow package directions 21 tablet 09/24/ 025 Discontinued(T herapy Completed or No Longer Needed) clonazePAM (KlonoPIN) 1 mg tablet Take 1 tablet (1 mg total) by mouth 3 times a day as needed for anxiety. 90 tablet 01/13/20 025 Discontinued Active Problems Problem Noted Date Diagnosed Date Age-related osteoporosis wit gely current pathological fracture 08/09/2024 Assessment & Plan (02/21/2025 10:04 AM EST): Reports was tried on PO bisphosphonate but adverse effects and now referred to local endo -follow up endo Assessment & Plan (08/09/2024 11:37 AM EDT): On DXA from yesterday -we will come back to if not addressed by PCP in interim Long-term use of high-risk medication 01/27/2024 Assessment & Plan (02/21/2025 10:04 AM EST): Hydroxychloroquine and morphine -[facility] Assessment & Plan (08/09/2024 11:36 AM EDT): Hydroxychloroquine and systemic NSAID and morphine -follow up with [facility] Assessment & Plan (01/27/2024 12:02 PM EDT): Hydroxychloroquine and systemic NSAID and morphine -labs today -follow up with [facility] -urine tox --signed controlled substance agreement Fibromyalgia 06/15/2023 Assessment & Plan (02/21/2025 10:05 AM EST): Here with join pain/bone pain. Overall [...] this time. Positive SEFERINO with low pos [employer]. Today LE are biggest issues -continue hydroxychloroquine 200mg BID -continue duloxetine 60mg daily -ongoing morphine ER/oxycodone -follow up neuro -we have talked about since she has CAD, it is more than possible that she might also have peripheral vascular disease as well contributing to the LE symptoms, especially since plain film knees summer 2023 unremarkable --she prefers to have arterial duplex done locally if at all possible Assessment & Plan (08/09/2024 11:37 AM EDT): [...] this time. Positive SEFERINO with low pos [employer]. -continue hydroxychloroquine 200mg BID -continue duloxetine 60mg every other day -continue oxycontin in lieu of available morphine ER --I have reviewed the controlled substance dispensing history for Xiomy Mccarty in the [place] Prescription Monitoring Program before prescribing a controlled [...] this time. Positive SEFERINO with low pos [employer]. -continue hydroxychloroquine 200mg BID -continue duloxetine 60mg [...] this time. Positive SEFERINO with low pos [employer]. -continue hydroxychloroquine 200mg BID -continue duloxetine as per neuro --await EMG/NCS --asked to call when she knows the date of this -morphine ER refilled --I have reviewed the controlled substance dispensing history for Xiomy Mccarty in the [facility] Prescription Monitoring Program before prescribing a controlled [...] this time. Positive SEFERINO with low pos [employer]. -has been improvement in her symptoms from [...] this time. Positive SEFERINO with low pos [employer]. -biggest issue today revolves around pain control [...] dispensing history for Xiomy Mccarty in the [place] Prescription Monitoring Program before prescribing a controlled [...] not, will go to have done at [facility] -needs to find new mental health provider she feels she can work with Other sleep apnea 06/15/2023 Assessment & Plan (02/21/2025 10:04 AM EST): previously have discussed how untreated sleep apnea contributes to increased pain perception - reports has not been using recently -has follow up pending later this month and hopefully can get reestablished Assessment & Plan (08/09/2024 10:33 AM EDT): previously have discussed how untreated sleep apnea contributes to increased pain perception - now is using CPAP -asked to follow up with sleep center at [facility] re: any titration needed Assessment & Plan (06/15/2023 1:50 PM EST): We have discussed how untreated sleep apnea contributes to increased pain perception Encounters Date Type Department Care Team Description 02/26/2025 Refill [facility] [address] [place] [phone] Buckle Coverer: Arnaud Ahn MD Fibromyalgia 02/21/2025 10:20 AM EST Follow-Up [facility] [address] [place] [address] Buckle Coverer: Arnaud Ahn MD Fibromyalgia (Primary Dx); Age-related osteoporosis without current pathological fracture; Long-term use of high-risk medication; Other sleep apnea; Polyarthralgia 02/15/2025 Refill [facility] [address] [place] [address] Buckle Coverer: Arnaud Ahn MD Fibromyalgia 02/15/2025 Refill [facility] [address] [place] [address] Buckle Coverer: Arnaud Ahn MD 02/06/2025 Refill [facility] [address] [place] [address]860 Buckle Coverer: Arnaud Ahn MD 02/01/2025 Telephone [facility] [address] [place] [address] Buckle Coverer: Arnaud Ahn MD 01/17/2025 Telephone [facility] [address] [place] [address] Buckle Coverer: Arnaud Ahn MD 01/12/2025 Refill [facility] [address] [place] [phone] Buckle Coverer: Arnaud Ahn MD 12/29/2024 Refill [facility] [address] [place] [address] Buckle Coverer: Arnaud Ahn MD [facility] 12/29/2024 Telephone [facility] [address] [place] [address] Buckle Coverer: Arnaud Ahn MD 12/25/2024 Refill [facility] [address] [place] [phone] Buckle Coverer: Arnaud Ahn MD 12/08/2024 Telephone [facility] [address] [place] [address] Buckle Coverer: Lena Reyes Telephone Intake, Staff PAC RX Refill from Last 3 Months Immunizations Immunization Administration Dates Next Due Influenza, High Dose Seasona l, Preservative Free (FLUZONE HIGH-DOSE) 02/01/2016 Influenza, Trivalent, MDV, Injectable 12/27/2010 ,01/07/2010 Novel [id number], Preservative-Free, Inje ctable 04/18/2009 Pneumococcal Conjugate Vaccine, [...] Sign Reading Time Taken Comments Blood Pressure 118/58 02/21/2025 9:31 AM EST Pulse 59 02/21/2025 9:31 AM EST Temperature 36.5 C (97.7 F) 02/21/2025 9:31 AM EST Respiratory Rate - - Oxygen Saturation - - Inhaled Oxygen Concentration - - Weight 85.7 kg (189 lb) 02/21/2025 9:31 AM EST Height 157.5 cm (5' 2 ) 02/21/2025 9:31 AM EST Body Mass Index 34.57 02/21/2025 9:31 AM EST Plan of Treatment Upcoming Encounters Date Type Department Care Team (Late st Contact Info) Description 09/06/2025 4:00 PM EDT Follow-Up [facility] [address] [place] [phone] Buckle Coverer: Arnaud Ahn MD [address] [place] [address] [phone] Health Maintenance Due Date Last Done Comments Controlled Substance Agreement 1945 Zoster Vaccines (1 of 2) 12/30/1993 RSV Vaccine (60+ years old and patients) (1 - 1-dose 75+ series) 12/30/2018 DTaP,Tdap,and Td Vaccines (1 - Tdap) 03/10/2019 03/09/2019, 10/05/2006 Alcohol/Substance Use Screening 04/20/2024 Depression Screening and Follow-Up 04/20/2024 Health Care Proxy Review 04/20/2024 Social Drivers of Health Annual Screening 04/20/2024 COVID-19 Vaccine (1 - season) 2024 Influenza Vaccine (#1) 2024 6, 12/27/2010, 01/07/2010, Additional history exists Fall Risk Screening 02/21/2026 02/21/2025 Pneumococcal Vaccine: 50+ Years Completed 11/20/2014, 01/16/2014, 12/22/2008 Osteoporosis Screening Completed , 08/08/2024, 09/09/2021, Additional history exists Hepatitis B Vaccines Aged Out No long er eligible based on patient's age to complete this topic Procedures * Due to [place] [employer] law, this organization might not be sharing negative HIV tests. Procedure Name Priority Date/Time Associated Diagnosis Comments COMPLEMENT C3C AND C4C Routine 11:11 AM EDT Fibromyalgia DNA ANTIBODY, DOUBLE-STRANDED Routine 02/14/2025 11:11 AM EDT Fibromyalgia C-REACTIVE PROTEIN Routine 02/14/2025 11 :11 AM EDT Fibromyalgia SEDIMENTATION RATE, AUTOMATED Routine 02/14/2025 11:11 AM EDT Fibromyalgia COMPREHENSIVE METABOLIC PANEL Routine 02/14/2025 11:11 AM EDT Fibromyalgia CBC AUTO DIFFERENTIAL Routine 02/14/2025 11:11 AM EDT Fibromyalgia HM DEXA SCAN 09/09/2021 from Last 3 Months or Most Recently Relevant to Health Maintenance Results * Due to [place] [employer] law, this organization might not be sharing negative HIV tests. * Complement C3c and C4c (02/14/2025 11:11 AM EDT) Pathologist [facility] Complement Component C3C 131 mg/dL 02/15/2025 5:50 AM EDT [employer] [facility] Comment: Reference Range <1 year: Not established 1-14 years: 82-173 15-80 years: 83-193 > or = 81 years Not established Complement Component C4C 18 mg/dL 02/15/2025 5:50 AM EDT [employer] [facility] Comment: Reference Range <1 year: Not established 1-14 years: 13-46 15-80 years: 15-57 > or = 81 years Not established Blood Structure of peripheral vein / Unknown 02/14/2025 11:11 AM EDT 02/15/2025 2:43 AM EDT [facility] - 02/16/2025 3:49 PM EDT FASTING:YES PATIENT UNABLE TO VOID; ADVISED TO RETURN FOR COLLECTION. Arnaud Grove MD LAB BLOOD ORDERABLES Final Result [facility] [address] [facility] [address], [place] [address], [employer] [facility] [address] [place] [address] * (ABNORMAL) CBC Auto Differential (02/14/2025 11:11 AM EDT) [facility] White Blood Cell Count 4.6 3.8 - 10.8 Thousand/ uL 02/16/2025 3:45 PM EDT [employer] [facility] Red Blood Cell Count 3.79(L) 3.80 - 5.10 Million/u L 02/16/2025 3:45 PM EDT [employer] [facility] Hemoglobin 11.6(L) 11.7 - 15.5 g/dL 02/16/2025 3:45 PM EDT [employer] [facility] Hematocrit 37.3 35.0 - 45.0 % 02/16/2025 3:45 PM EDT [employer] [facility] MCV 98.4 80.0 - 100.0 fL 02/16/2025 3:45 PM EDT [employer] [facility] MCH 30.6 27.0 - 33.0 pg 02/16/2025 3:45 PM [employer] [facility] MCHC 31.1(L) 32.0 - 36.0 g/dL 02/16/2025 3:45 PM EDT [employer] [facility] Comment: For adults, a slight decrease in the calculated MCHC value (in the range of 30 to 32 g/dL) is most likely not clinically significant; however, it should be interpreted with caution in correlation with other red cell parameters and the patient's clinical condition. RDW 12.5 11.0 - 15.0 % 02/16/2025 3:45 PM EDT [employer] [facility] Platelet Count 336 140 - 400 Thousand/ uL 02/16/2025 3:45 PM [employer] [facility] MPV 11.8 7.5 - 12.5 fL 02/16/2025 3:45 PM [employer] [facility] Absolute Neutrophils 3,064 1,500 - 7,800 cells/uL 02/16/2025 3:45 PM [employer] Absolute Lymphocytes 713(L) 850 - 3,900 cells/uL 02/16/2025 3:45 PM [employer] Absolute Monocytes 524 200 - 950 cells/uL 02/16/2025 3:45 PM [employer] [facility] Absolute Eosinophils 230 15 - 500 cells/uL 02/16/2025 3:45 PM [employer] Absolute Basophils 69 0 - 200 cells/uL 02/16/2025 3:45 PM [employer] [facility] Neutrophils 66.6 % 02/16/2025 3:45 PM [employer] [facility] Lymphocytes 15.5 % 02/16/2025 3:45 PM [employer] Monocytes 11.4 % 02/16/2025 3:45 PM [employer] Eosinophils 5.0 % 02/16/2025 3:45 PM [employer] Basophils 1.5 % 02/16/2025 3:45 PM [employer] [facility] Blood Structure of peripheral vein / Unknown 02/14/2025 11:11 AM EDT 02/15/2025 4:24 AM EDT [employer] [facility] - 02/16/2025 3:49 PM EDT FASTING:YES PATIENT UNABLE TO VOID; ADVISED TO RETURN FOR COLLECTION. us Arnaud Grove MD LAB BLOOD ORDERABLES Final Result [facility] [address], [place] [address], [place] [phone] [facility] [employer] [address] [address] * DNA Antibody, Double-Stranded (02/14/2025 11:11 AM EDT) DNA (Ds) Antibody <1 IU/mL 025 8:19 PM EDT [facility] [employer] [facility] Comment: IU/mL Interpretation < or = 4 Negative 5-9 Indeterminate > or = 10 Positive Blood Structure of peripheral vein / Unknown 02/14/2025 11:11 AM EDT 02/15/2025 4:19 AM EDT Narrative [facility] - 02/16/2025 3:49 PM EDT FASTING:YES PATIENT UNABLE TO VOID; ADVISED TO RETURN FOR COLLECTION. us Arnaud Grove MD LAB BLOOD ORDERABLES Final Result Performing Organization Address City/[facility] Co de Phone Number [facility] [address] [place] [address], [place] [address], [place] [phone] [facility] [address] [address] * Sedimentation Rate (02/14/2025 11:11 AM EDT) Pathologist [facility] Sed Rate By Modified Carringtonergren 14 0 - 30 mm/h 02/15/2025 5:43 AM EDT [facility] [employer] [facility] Blood Structure of peripheral vein / Unknown 02/14/2025 11:11 AM EDT 02/15/2025 4:55 AM EDT Narrative [facility] - 02/16/2025 3:49 PM EDT FASTING:YES PATIENT UNABLE TO VOID; ADVISED TO RETURN FOR COLLECTION. us Arnaud Grove MD LAB BLOOD ORDERABLES Final Result Performing Organization Address City/[facility]/ZIP Co de Phone Number [facility] [address], [place] [address], [place] [phone] [facility] [address] [address] * C-Reactive Protein (02/14/2025 11:11 AM EDT) Pathologist [facility] C-Reactive Protein 7.4 <8.0 mg/L 02/15/2025 7:54 AM EDT [facility] Blood Structure of peripheral vein / Unknown 02/14/2025 11:11 AM EDT 02/15/2025 4:19 AM EDT Narrative [facility] - 02/16/2025 3:49 PM EDT FASTING:YES PATIENT UNABLE TO VOID; ADVISED TO RETURN FOR COLLECTION. Arnaud Grove MD LAB BLOOD ORDERABLES Final Result Performing Organization Address [facility]/ZIP Co de Phone Number [facility] [address], [facility] [address], [place] [phone] [facility] [address] [address] * Comprehensive Metabolic Panel (02/14/2025 11:11 AM EDT) [facility] Glucose 98 65 - 99 mg/dL 02/15/2025 7:51 AM EDT [employer] [facility] Comment: Fasting reference interval BUN 9 7 - 25 mg/dL 02/15/2025 7:51 AM EDT [facility] Creatinine 0.84 0.60 - 0.95 mg/dL 02/15/2025 7:51 AM EDT [facility] eGFR 70 > OR = 60 mL/min/1. 73m2 02/15/2025 7:51 AM EDT [facility] Bun/Creatinine Ratio SEE NOTE: 6 - 22 (calc) 02/15/2025 7:51 AM EDT [facility] Comment: Not Reported: BUN and Creatinine are within reference range. Sodium 139 135 - 146 mmol/L 02/15/2025 7:51 AM EDT [facility] Potassium 4.8 3.5 - 5.3 mmol/L 02/15/2025 7:51 AM EDT [facility] Chloride 104 98 - 110 mmol/L 02/15/2025 7:51 AM EDT [employer] [facility] Carbon Dioxide 28 20 - 32 mmol/L 02/15/2025 7:51 AM [employer] [facility] Calcium 8.8 8.6 - 10.4 mg/dL 02/15/2025 7:51 AM [employer] [facility] Protein, Total 6.4 6.1 - 8.1 g/dL 02/15/2025 7:51 AM [employer] [facility] Albumin 4.0 3.6 - 5.1 g/dL 02/15/2025 7:51 AM [employer] [facility] Globulin 2.4 1.9 - 3.7 g/dL (calc) 02/15/2025 7:51 AM [employer] Albumin/Globuli n Ratio 1.7 1.0 - 2.5 (calc) 02/15/2025 7:51 AM [employer] [facility] Bilirubin, Total 0.4 0.2 - 1.2 mg/dL 02/15/2025 7:51 AM [employer] [facility] Alkaline Phosphatase 76 37 - 153 U/L 02/15/2025 7:51 AM [employer] [facility] AST 14 10 - 35 U/L 02/15/2025 7:51 AM [employer] [facility] ALT 11 6 - 29 U/L 02/15/2025 7:51 AM [employer] [facility] Blood Structure of peripheral vein / Unknown 02/14/2025 11:11 AM EDT 02/15/2025 4:19 AM EDT Narrative [facility] - 02/16/2025 3:49 PM EDT FASTING:YES PATIENT UNABLE TO VOID; ADVISED TO RETURN FOR COLLECTION. Arnaud Grove MD LAB BLOOD ORDERABLES Final Result [facility] [address] [facility] [address], [place] [address], [place] [phone] [employer] [facility] [address] [place] [address] * DEXA SCAN (09/09/2021) Anatomical Region Laterality Modality Other 09/09/2021 us Onbase Scan [facility] Final Resu lt from Last 3 Months or Most Recently Relevant to Health Maintenance Insurance [facility] Care Teams Lna Relationship Specialty Start Date End Date Kristi Hays [address] [place] [address] PCP - General 02/21/25
--- OUTSIDE RECORDS SUMMARY | 2025-02-28 13:54 | XMS_ITS | Encounter Summary ---
Author Organization [facility] Address [address] [place] [address] Care Team Providers Care Increment Manager Name Role Phone Physician, No Pcp Primary Care Provider Unavaila ble Reason for Visit * Reason Onset Date Comments Scheduling 02/27/2025 Encounter Details Date Type Department Care Team (Late st Contact Info) Description 02/27/2025 Telephone [facility] - [facility] [address] [facility] [address] [place] [address] Juan Mota MD [address] [place] [address] [place] [id number] Social History Tobacco Use Types Packs/Day Years [...] on file documented as of this encounter Progress Notes * Evangelina Maki - 02/27/2025 9:25 AM EST Scheduled appointment with patient. 04/10/25 with Maryanne at 1:10 * Evangelina Maki - 02/27/2025 8:54 AM EST Called to offer patient appointment, if she calls back please schedule documented in this encounter Plan of Treatment Upcoming Encounters Date Type Department Care Team (Late st Contact Info) Description 04/10/2025 1:10 PM EST Office Visit [facility] - [address] [place] [address] Maryanne Barton, BRAEDEN [address] [place] [address] [place] [address] documented as of this encounter Visit Diagnoses Not on filedocumented in this encounter Care Teams Increment Manager Relationship Specialty Start Date End Date Physician, No Pcp PCP - General 11/04/24 documented as of this encounter
== END 2025-02-28 12:26 | disposition home or self-care (01) ==
LOC: HO.HSM 11:53
PROVIDERS: PCP Internal Medicine; Visit Provider Psychiatry & Neurology Neurology
DX: R55 Syncope and collapse (principal); G44.209 Tension-type headache, unspecified, not intractable; G62.9 Polyneuropathy, unspecified
CPT/HCPCS: 99214

== ENCOUNTER → 2025-02-28 11:52 | Outpatient (BNVA) | payer OTHER, SELFPAY | PROVIDERS: PCP Internal Medicine; Visit Provider Psychiatry & Neurology Neurology | DX: R55 Syncope and collapse (principal); G44.209 Tension-type headache, unspecified, not intractable; G62.9 Polyneuropathy, unspecified | CPT/HCPCS: 99212 ==